=== PATIENT | female | born 1950 | race Caucasian/White ===

== ENCOUNTER 2017-04-12 11:23 | Emergency (ER) | payer MEDICARE ==
[2017-04-12] MEDS ORDERED: ONDANSETRON 4 MG/2 ML VIAL IVP STA (12:46)
[2017-04-12] MEDS ORDERED: SODIUM CHLORIDE 0.9% 1,000 ML IV STA (12:46)
[2017-04-12] MEDS ORDERED: MAG HYDROX/AL HYDROX/SIMETH 30 ML, HYOSCYAMINE ELIXIR 10 ML, CIMETIDINE HCL 300 MG, LID... PO STA ×4 (12:47)
[2017-04-12 13:03] LABS: Basophils % (A) 0 %; CH 31.7; CHCM 34.7; Eosinophils % (A) 1 %; HCT 42.8 % (34.0-46.0); HDW 2.47; HGB 14.8 gm/dL (11.4-16.0); Luc # (Auto) 0.24; Luc % (Auto) 3; Lymphocytes # (A) 1.8 k/uL (1.0-4.8); Lymphocytes % (A) 23 %; MCH 31.7 pg (25.0-35.0); MCHC 34.5 g/dL (31.0-37.0); Mean Platelet Volume 6.8; Monocytes # (A) 0.4 k/uL (0-1.0); Monocytes % (A) 5 %; Neutrophils # (A) 5.2 k/uL (1.3-7.7); Neutrophils % (A) 67 %; RBC 4.66 m/uL (3.80-5.40); RDW 12.7 % (11.5-15.5); WBC 7.7 k/uL (3.8-10.6); WBC (Perox) 7.44
[2017-04-12 13:14] LABS: Partial Thromboplastin Time 23.9 sec (22.0-30.0); Prothrombin Time 10.1 sec (9.0-12.0)
--- NOTE | 2017-04-12 13:17 | ED ---
General Adult HPI - General Chief complaint: Shortness of Breath Stated complaint: amy, nausea Time Seen by Provider: 04/12/17 12:34 Source: patient, RN notes reviewed Mode of arrival: ambulatory Limitations: no limitations - History of Present Illness Initial comments: 66-year-old female presents to the emergency department with chief complaint of abdominal issues. She has been having these abdominal issues and has a GI appointment on Thursday. She states that she'll get acid reflux she'll get a lot of belching. She states her last 2 days it seems to be getting worse. She was placed on omeprazole which seemed to help her symptoms. She states now she is having little bit of shortness of breath with this. She denies any chest pain with this. Patient states that she hasn't had any nausea or vomiting she doesn't have any pain just his this continuous annoyance that she hasn't had abdomen. Patient denies any diarrhea. Patient was concerned due to her symptoms so she thought that she should be evaluated.Patient denies any recent fever, chills, shortness of breath, chest pain, back pain, nausea vomiting, numbness or tingling, dysuria or hematuria, constipation or diarrhea, headaches or visual changes, or any other current symptoms. - Related Data Home Medications Medication Instructions Recorded Confirmed Folic Acid 1 mg PO DAILY 04/12/17 04/12/17 Hydrochlorothiazide [Hydrodiuril] 25 mg PO DAILY 04/12/17 04/12/17 Olmesartan [Benicar] 20 mg PO DAILY 04/12/17 04/12/17 Omeprazole 40 mg PO DAILY 04/12/17 04/12/17 Simvastatin [Zocor] 20 mg PO HS 04/12/17 04/12/17 buPROPion HCL [Wellbutrin SR] 150 mg PO BID 04/12/17 04/12/17 Previous Rx's Medication Instructions Recorded Mag Hydrox/Al Hydrox/Simeth 10 ml PO BID 10 Days 04/12/17 [Maalox] Allergies Allergy/AdvReac Type Severity Reaction Status Date / Time Penicillins Allergy Rash/Hives Verified 04/12/17 12:48 Review of Systems ROS Statement: Those systems with pertinent positive or pertinent negative responses have been documented in the HPI. ROS Other: All systems not noted in ROS Statement are negative. Past Medical History Additional Past Medical History / Comment(s): h. pylori History of Any Multi-Drug Resistant Organisms: None Reported Past Surgical History: Joint Replacement, Tonsillectomy Additional Past Surgical History / Comment(s): knee Past Psychological History: No Psychological Hx Reported Smoking Status: Never smoker Past Alcohol Use History: Rare Past Drug Use History: None Reported General Exam - General Exam Comments Initial Comments: General: The patient is awake and alert, in no distress, and does not appear acutely ill. Eye: Pupils are equal, round and reactive to light, extra-ocular movements are intact; there is normal conjunctiva bilaterally. No signs of icterus. Ears, nose, mouth and throat: There are moist mucous membranes and no oral lesions. Neck: The neck is supple, there is no tenderness. Cardiovascular: There is a regular rate and rhythm. No murmur, rub or gallop is appreciated. Respiratory: Lungs are clear to auscultation, respirations are non-labored, breath sounds are equal. No wheezes, stridor, rales, or rhonchi. Gastrointestinal: Soft, non-distended, non-tender abdomen without masses or organomegaly noted. There is no rebound or guarding present. No CVA tenderness. Bowel sounds are unremarkable. Back: There is no tenderness to palpation in the midline. There is no obvious deformity. No rashes noted. Musculoskeletal: Normal ROM, no tenderness, There is no pedal edema. There is no calf tenderness or swelling. Sensation intact. Pulses equal bilaterally 2+. Neurological: CN II-XII intact, There are no obvious motor or sensory deficits. Coordination appears grossly intact. Speech is normal. Skin: Skin is warm and dry and no rashes or lesions are noted. Psychiatric: Cooperative, appropriate mood & affect, normal judgment. Limitations: no limitations Course Vital Signs 04/12/17 04/12/17 04/12/17 12:07 12:40 13:43 Temperature 98.4 F Pulse Rate 100 84 72 Respiratory 18 18 18 Rate Blood Pressure 132/77 156/84 145/84 O2 Sat by Pulse 99 98 100 Oximetry EKG Findings - EKG Comments: EKG Findings:: normal sinus rhythm 84 bpm, normal axis, no atopy, no S-T depressions or elevations, Medical Decision Making - Medical Decision Making 66-year-old female presents with abdominal issues. At this time patient's lab work is been reviewed and her potassium has been replaced. The patient did have much improvement with the GI cocktail. We did discussion stop with GI and she has appointment on Thursday. We discussed prison and return parameters all the patient's questions. She stated that she understood and she is in agreement with plan. All questions have been answered. This time the patient will be discharged home. - Lab Data Result diagrams: 04/12/17 12:35 04/12/17 12:35 Lab Results 04/12/17 04/12/17 04/12/17 Range/Units 12:35 12:35 12:35 WBC 7.7 (3.8-10.6) k/uL RBC 4.66 (3.80-5.40) m/uL Hgb 14.8 (11.4-16.0) gm/dL Hct 42.8 (34.0-46.0) % MCV 92.0 (80.0-100.0) fL MCH 31.7 (25.0-35.0) pg MCHC 34.5 (31.0-37.0) g/dL RDW 12.7 (11.5-15.5) % Plt Count 353 (150-450) k/uL Neutrophils % 67 % Lymphocytes % 23 % Monocytes % 5 % Eosinophils % 1 % Basophils % 0 % Neutrophils # 5.2 (1.3-7.7) k/uL Lymphocytes # 1.8 (1.0-4.8) k/uL Monocytes # 0.4 (0-1.0) k/uL Eosinophils # 0.0 (0-0.7) k/uL Basophils # 0.0 (0-0.2) k/uL PT (9.0-12.0) sec INR (<1.2) APTT (22.0-30.0) sec Sodium 135 L (137-145) mmol/L Potassium 3.2 L (3.5-5.1) mmol/L Chloride 95 L (98-107) mmol/L Carbon Dioxide 28 (22-30) mmol/L Anion Gap 12 mmol/L BUN 10 (7-17) mg/dL Creatinine 0.76 (0.52-1.04) mg/dL Est GFR (MDRD) Af Amer >60 (>60 ml/min/1.73 sqM) Est GFR (MDRD) Non-Af >60 (>60 ml/min/1.73 sqM) Glucose 90 (74-99) mg/dL Calcium 9.4 (8.4-10.2) mg/dL Magnesium 2.0 (1.6-2.3) mg/dL Total Bilirubin 0.6 (0.2-1.3) mg/dL AST 29 (14-36) U/L ALT 38 (9-52) U/L Alkaline Phosphatase 82 (38-126) U/L Total Creatine Kinase 81 (30-135) U/L CK-MB (CK-2) 0.5 (0.0-2.4) ng/mL CK-MB (CK-2) Rel Index 0.6 Troponin I <0.012 (0.000-0.034) ng/mL Total Protein 7.3 (6.3-8.2) g/dL Albumin 4.6 (3.5-5.0) g/dL Amylase 85 (30-110) U/L Lipase 132 (23-300) U/L Urine Color Urine Appearance (Clear) Urine pH (5.0-8.0) Ur Specific Hazel (1.001-1.035) Urine Protein (Negative) Urine Glucose (UA) (Negative) Urine Ketones (Negative) Urine Blood (Negative) Urine Nitrite (Negative) Urine Bilirubin (Negative) Urine Urobilinogen (<2.0) mg/dL Ur Leukocyte Esterase (Negative) 04/12/17 04/12/17 Range/Units 12:35 13:35 WBC (3.8-10.6) k/uL RBC (3.80-5.40) m/uL Hgb (11.4-16.0) gm/dL Hct (34.0-46.0) % MCV (80.0-100.0) fL MCH (25.0-35.0) pg MCHC (31.0-37.0) g/dL RDW (11.5-15.5) % Plt Count (150-450) k/uL Neutrophils % % Lymphocytes % % Monocytes % % Eosinophils % % Basophils % % Neutrophils # (1.3-7.7) k/uL Lymphocytes # (1.0-4.8) k/uL Monocytes # (0-1.0) k/uL Eosinophils # (0-0.7) k/uL Basophils # (0-0.2) k/uL PT 10.1 (9.0-12.0) sec INR 1.0 (<1.2) APTT 23.9 (22.0-30.0) sec Sodium (137-145) mmol/L Potassium (3.5-5.1) mmol/L Chloride (98-107) mmol/L Carbon Dioxide (22-30) mmol/L Anion Gap mmol/L BUN (7-17) mg/dL Creatinine (0.52-1.04) mg/dL Est GFR (MDRD) Af Amer (>60 ml/min/1.73 sqM) Est GFR (MDRD) Non-Af (>60 ml/min/1.73 sqM) Glucose (74-99) mg/dL Calcium (8.4-10.2) mg/dL Magnesium (1.6-2.3) mg/dL Total Bilirubin (0.2-1.3) mg/dL AST (14-36) U/L ALT (9-52) U/L Alkaline Phosphatase (38-126) U/L Total Creatine Kinase (30-135) U/L CK-MB (CK-2) (0.0-2.4) ng/mL CK-MB (CK-2) Rel Index Troponin I (0.000-0.034) ng/mL Total Protein (6.3-8.2) g/dL Albumin (3.5-5.0) g/dL Amylase (30-110) U/L Lipase (23-300) U/L Urine Color Yellow Urine Appearance Clear (Clear) Urine pH 7.5 (5.0-8.0) Ur Specific Hazel 1.010 (1.001-1.035) Urine Protein Negative (Negative) Urine Glucose (UA) Negative (Negative) Urine Ketones Trace H (Negative) Urine Blood Negative (Negative) Urine Nitrite Negative (Negative) Urine Bilirubin Negative (Negative) Urine Urobilinogen <2.0 (<2.0) mg/dL Ur Leukocyte Esterase Negative (Negative) - Radiology Data Radiology results: report reviewed, image reviewed Disposition Clinical Impression: Hypokalemia, Gastritis Disposition: HOME SELF-CARE Condition: Stable Instructions: Gastritis (ED) Additional Instructions: Please use medication as discussed. Please follow up with family doctor if symptoms have not improved over the next two days. Please return to the emergency room if your symptoms increase or worsen or for any other concerns. Prescriptions: Mag Hydrox/Al Hydrox/Simeth [Maalox] 10 ml PO BID 10 Days Referrals: Noris Pink MD [Primary Care Provider] - 1-2 days Time of Disposition: 14:14
[2017-04-12 13:21] LABS: ALT 38 U/L (9-52); AST 29 U/L (14-36); Alkaline Phosphatase 82 U/L (38-126); Amylase 85 U/L (30-110); Anion Gap 12 mmol/L; Blood Urea Nitrogen 10 mg/dL (7-17); Calcium 9.4 mg/dL (8.4-10.2); Carbon Dioxide 28 mmol/L (22-30); Chloride 95 mmol/L (98-107); Glucose 90 mg/dL (74-99); Non-African American GFR(MDRD) >60 (>60 ml/min/1.73 sqM); Potassium 3.2 mmol/L (3.5-5.1); Sodium 135 mmol/L (137-145); Total Bilirubin 0.6 mg/dL (0.2-1.3); Total Protein 7.3 g/dL (6.3-8.2)
[2017-04-12 13:24] LABS: Creatine Kinase 81 U/L (30-135)
[2017-04-12 13:37] LABS: Creatine Kinase MB 0.5 ng/mL (0.0-2.4); Troponin I <0.012 ng/mL (0.000-0.034)
--- NOTE | 2017-04-12 13:40 | XR ---
EXAMINATION TYPE: XR chest 2V DATE OF EXAM: 04/12/2017 HISTORY: Chest Pain. REFERENCE: Previous study dated 10/21/2012. FINDINGS: The lungs are clear. Heart size is upper limits of normal. Pleural spaces are clear. IMPRESSION: BORDERLINE CARDIOMEGALY.
[2017-04-12 13:50] LABS: Appearance,Urine Clear (Clear); Bilirubin,Urine Negative (Negative); Glucose,Urine (UA) Negative (Negative); Ketones,Urine Trace (Negative); Leukocyte Esterase,Urine Negative (Negative); Nitrite,Urine Negative (Negative); PH, Urine 7.5 (5.0-8.0); Protein,Urine Negative (Negative); UA Billing (MACRO vs. MICRO) CHEM; Urobilinogen,Urine <2.0 mg/dL (<2.0)
[2017-04-12] MEDS ORDERED: POTASSIUM CHLORIDE ORAL LIQUID 40 MEQ/30 ML CUP PO ONE (14:00)
[2017-04-12 14:21] VITALS: BP 132/69; PULSE 64; RESP 16; TEMP 97.6
== END 2017-04-12 14:41 | disposition home or self-care (01) ==
LOC: EC 11:23
DX: K29.70 Gastritis, unspecified, without bleeding (principal); E87.6 Hypokalemia; R06.02 Shortness of breath; Z79.899 Other long term (current) drug therapy; Z88.0 Allergy status to penicillin
CPT/HCPCS: 96361 ×2; 96374 ×2; 99285 ×2; 36415; 93005; 80053; 82150; 82550; 82553; 83690; 83735; 84484; 85025; 85610; 85730; 81003; 71020; J2405

== ENCOUNTER → 2017-05-04 | Outpatient (CLI) | payer MEDICARE ==
[2017-05-04 11:11] LABS: Blood Urea Nitrogen 12 mg/dL (7-17); Non-African American GFR(MDRD) >60 (>60 ml/min/1.73 sqM)
--- NOTE | 2017-05-04 13:00 | CT ---
EXAMINATION TYPE: CT abdomen pelvis w con DATE OF EXAM: 05/04/2017 HISTORY: Weight loss. Nausea. CT DLP: 518.10mGycm Automated Exposure Control for Dose Reduction was Utilized. CONTRAST: CT scan of the abdomen and pelvis is performed with IV Contrast, patient injected with 100 ml mL of O mnipaque 300. COMPARISON: None. FINDINGS: LUNG BASES: Some patchy bibasilar linear scarring and/or atelectasis is present. Right atrium is mild to moderately dilated. LIVER/GB: Gallbladder is not visualized and presumed surgically absent. PANCREAS: No significant abnormality is seen. SPLEEN: No significant abnormality is seen. ADRENALS: No significant abnormality is seen. KIDNEYS: There is occasional subcentimeter low dense lesions scattered throughout both kidneys too sm all to further characterize per presumed benign. There is exophytic 3.0 cm low dense lesion lower hernandez e level left kidney, Hounsfield units are around 20 favoring simple cyst. BOWEL: The oral contrast does not reach colonic level making evaluation slightly suboptimal. No suspi cious small or large bowel dilatation is present. Normal-appearing appendix is seen inferiorly from c ecum. There is nonabsorbed pill near the level of hepatic flexure. UTERUS/ADNEXA: Occasional pelvic phleboliths are seen. LYMPH NODES: No greater than 1cm abdominal or pelvic lymph nodes are appreciated. OSSEOUS STRUCTURES: Metallic hardware from right hip arthroplasty causes streak artifact somewhat sears iting evaluation of pelvic structures. Spine is straightened on sagittal images. There is vacuum disc phenomenon L5-S1 level. There is moderate joint space loss and spurring in the left hip. OTHER: No significant additional abnormality is seen. IMPRESSION: No bowel obstruction is present. No significant finding is seen to account for patient's symptoms.
== END | disposition home or self-care (01) ==
LOC: RADCTMAIN 10:27
PROVIDERS: ATTEND Internal Medicine Gastroenterology
DX: R10.33 Periumbilical pain (principal); R63.4 Abnormal weight loss; R11.0 Nausea
CPT/HCPCS: 82565; 84520; 74177; 36415; Q9967

== ENCOUNTER → 2017-11-27 | Outpatient (CLI) | payer MEDICARE ==
--- NOTE | 2017-11-27 17:30 | MR ---
EXAMINATION TYPE: MR lumbar spine wo con DATE OF EXAM: 11/27/2017 COMPARISON: NONE HISTORY: 67-year-old female herniated disc, Low back pain TECHNIQUE: Multiplanar, multisequence images of the lumbar spine were acquired. Findings: Vertebral body heights are preserved. There is hypertrophic facet arthropathy throughout the lumbar spine. Degenerative grade 1 anterolisthesis at L2-L3 and L4-L5. Mild heterogeneous marrow signal without suspicious bone marrow replacement. Prominent sacral Tarlov cysts are present measuring up to 2.1 cm. Scattered ligamentum flavum thickening and variable mild to moderate degenerative disc disease charac terized by desiccated and bulging discs at multiple levels. A couple T2 hyperintense lesions within the kidneys suggestive of cysts measuring up to 1.6 cm. No pr evertebral or paravertebral soft tissue abnormality seen. Conus medullaris is normal. At T12-L1, there is diffuse disc bulge and facet degenerative change, no significant canal or foramin al stenosis. L1-L2, there is diffuse disc bulge and facet arthropathy. No significant canal or foraminal stenosis. At L2-L3, there is hypertrophic facet arthropathy with grade 1 anterolisthesis, diffuse disc bulge, a nd prominent dorsal epidural fat. There is overall mild narrowing of the spinal canal at this level b ut without significant neuroforaminal stenosis. At L3-L4, there is diffuse disc bulge with hypertrophic facet arthropathy. Changes result in mild selina ateral neuroforaminal stenosis without spinal canal stenosis. At L4-L5, diffuse disc bulge with hypertrophic facet arthropathy. Changes result in mild left and min imal inferior right neural foraminal narrowing without spinal canal stenosis. At L5-S1, facet degenerative change and disc osteophyte complex towards the right contributing to mod erate right neural foraminal stenosis with possible impingement of the exiting and extraforaminal rig ht L5 nerve root. IMPRESSION: 1. Mild to moderate multilevel degenerative disc disease with a variable desiccation and disc bulging . 2. Hypertrophic facet arthropathy throughout. Grade 1 anterolistheses are present at L2-L3 and L4-L5. 3. There is overall mild narrowing of the spinal canal at L2-L3. No spinal canal compromise. 4. Rightward disc osteophyte complex and facet arthropathy contributes to a moderate right neuroforam inal stenosis at L5-S1 with possible impingement of the exiting and extraforaminal right L5 nerve darleen t. 5. Prominent sacral Tarlov cysts measuring up to 2.1 cm.
== END | disposition home or self-care (01) ==
LOC: RADMRIMAIN 10:58
PROVIDERS: ATTEND Family Medicine
DX: M99.73 Connective tissue and disc stenosis of intervertebral foramina of lumbar region (principal); M51.26 Other intervertebral disc displacement, lumbar region; M43.16 Spondylolisthesis, lumbar region; M51.36 Other intervertebral disc degeneration, lumbar region; M46.96 Unspecified inflammatory spondylopathy, lumbar region
CPT/HCPCS: 72148

== ENCOUNTER 2018-10-26 11:50 | Observation (INO) | payer MEDICARE ==
[2018-10-26] MEDS ORDERED: SODIUM CHLORIDE 0.9% 500 ML 500 ML IV STA (12:02)
[2018-10-26] MEDS ORDERED: ASPIRIN 325 MG TAB PO STA (12:09)
--- NOTE | 2018-10-26 12:14 | ED ---
Weakness HPI - General Chief complaint: Weakness Stated complaint: Weak Time Seen by Provider: 10/26/18 12:02 Source: patient, RN notes reviewed Mode of arrival: ambulatory Limitations: no limitations - History of Present Illness Initial comments: 68-year-old female presents emergency Department chief complaint of progressive weakness. Patient states that she has been not feeling right over the last few weeks states that she seen her PCP for this who did lab work, EKG few weeks ago and then had Holter monitor placed. Patient states that she called her today because she felt more weak and had some faint chest pressure. Patient states that her physician advised her emergency department because she had some abnormal areas on her Holter monitor. Patient has no current shortness of breath. She states that she was at exercise class on Thursday and states that she was so fatigued she cannot continue which is not normal for her and also she is very diaphoretic. Patient does have a history of hyperlipidemia and hypertension on current medications. No history of diabetes. Patient is a nonsmoker. - Related Data Home Medications Medication Instructions Recorded Confirmed Folic Acid 1 mg PO DAILY 04/12/17 10/26/18 Hydrochlorothiazide [Hydrodiuril] 25 mg PO DAILY 04/12/17 10/26/18 Olmesartan [Benicar] 20 mg PO DAILY 04/12/17 10/26/18 Omeprazole 40 mg PO DAILY PRN 04/12/17 10/26/18 Simvastatin [Zocor] 20 mg PO HS 04/12/17 10/26/18 buPROPion HCL [Wellbutrin SR] 150 mg PO BID 04/12/17 10/26/18 Cholecalciferol [Vitamin D3] 1,000 unit PO DAILY 10/26/18 10/26/18 Cyanocobalamin (Vitamin B-12) 1,000 mcg PO DAILY 10/26/18 10/26/18 [Vitamin B-12] Vit C/E/Zn/Coppr/Lutein/Zeaxan 1 cap PO DAILY 10/26/18 10/26/18 [Preservision Areds 2 Softgel] Allergies Allergy/AdvReac Type Severity Reaction Status Date / Time Penicillins Allergy Rash/Hives Verified 10/26/18 12:45 Review of Systems ROS Statement: Those systems with pertinent positive or pertinent negative responses have been documented in the HPI. ROS Other: All systems not noted in ROS Statement are negative. Past Medical History Past Medical History: Hyperlipidemia, Hypertension Additional Past Medical History / Comment(s): h. pylori History of Any Multi-Drug Resistant Organisms: None Reported Past Surgical History: Joint Replacement, Tonsillectomy Additional Past Surgical History / Comment(s): knee hip replacement Past Psychological History: No Psychological Hx Reported, Anxiety Smoking Status: Former smoker Past Alcohol Use History: Rare Past Drug Use History: None Reported General Exam General appearance: alert, in no apparent distress Head exam: Present: atraumatic, normocephalic, normal inspection Eye exam: Present: normal appearance, PERRL, EOMI. Absent: scleral icterus, c onjunctival injection, periorbital swelling ENT exam: Present: normal exam, normal oropharynx, mucous membranes moist, TM's normal bilaterally Neck exam: Present: normal inspection. Absent: tenderness, meningismus, lymphadenopathy Respiratory exam: Present: normal lung sounds bilaterally. Absent: respiratory distress, wheezes, rales, rhonchi, stridor Cardiovascular Exam: Present: regular rate, normal rhythm, normal heart sounds. Absent: systolic murmur, diastolic murmur, rubs, gallop, clicks GI/Abdominal exam: Present: soft, normal bowel sounds. Absent: distended, tenderness, guarding, rebound, rigid Neurological exam: Present: alert, oriented X3, CN II-XII intact, reflexes normal. Absent: motor sensory deficit Skin exam: Present: warm, dry, intact, normal color. Absent: rash Course Vital Signs 10/26/18 10/26/18 10/26/18 11:53 12:30 13:00 Temperature 98.5 F Pulse Rate 94 79 72 Respiratory 18 11 L 11 L Rate Blood Pressure 145/81 149/86 149/86 O2 Sat by Pulse 98 98 97 Oximetry 10/26/18 10/26/18 13:30 14:00 Temperature Pulse Rate 68 72 Respiratory 12 17 Rate Blood Pressure 145/85 150/86 O2 Sat by Pulse 99 97 Oximetry EKG Findings - EKG Comments: EKG Findings:: EKG performed at 12:14 normal sinus rhythm with rate of 82 WA 166 QRS 70 QTC is QTC 398/464 is mild depressions in V2 and V3 Medical Decision Making - Medical Decision Making 68-year-old female presented for fatigue/weakness and mild chest pressure. Patient had labwork EKG and chest x-ray which is unremarkable. Patient be admitted for cardiac rule out. - Lab Data Result diagrams: 10/26/18 12:34 10/26/18 12:34 Lab Results 10/26/18 10/26/18 10/26/18 Range/Units 12:34 12:34 12:34 WBC 7.1 (3.8-10.6) k/uL RBC 4.88 (3.80-5.40) m/uL Hgb 14.5 (11.4-16.0) gm/dL Hct 43.4 (34.0-46.0) % MCV 89.0 (80.0-100.0) fL MCH 29.8 (25.0-35.0) pg MCHC 33.5 (31.0-37.0) g/dL RDW 12.6 (11.5-15.5) % Plt Count 338 (150-450) k/uL Neutrophils % 70 % Lymphocytes % 21 % Monocytes % 5 % Eosinophils % 1 % Basophils % 1 % Neutrophils # 5.0 (1.3-7.7) k/uL Lymphocytes # 1.5 (1.0-4.8) k/uL Monocytes # 0.4 (0-1.0) k/uL Eosinophils # 0.1 (0-0.7) k/uL Basophils # 0.0 (0-0.2) k/uL PT (9.0-12.0) sec INR (<1.2) APTT (22.0-30.0) sec Sodium 137 (137-145) mmol/L Potassium 3.7 (3.5-5.1) mmol/L Chloride 99 (98-107) mmol/L Carbon Dioxide 29 (22-30) mmol/L Anion Gap 9 mmol/L BUN 15 (7-17) mg/dL Creatinine 0.65 (0.52-1.04) mg/dL Est GFR (CKD-EPI)AfAm >90 (>60 ml/min/1.73 sqM) Est GFR (CKD-EPI)NonAf >90 (>60 ml/min/1.73 sqM) Glucose 89 (74-99) mg/dL Plasma Lactic Acid Javier 1.2 (0.7-2.0) mmol/L Calcium 10.2 (8.4-10.2) mg/dL Phosphorus 3.4 (2.5-4.5) mg/dL Magnesium 2.0 (1.6-2.3) mg/dL Total Bilirubin 0.6 (0.2-1.3) mg/dL AST 30 (14-36) U/L ALT 33 (9-52) U/L Alkaline Phosphatase 77 (38-126) U/L Troponin I (0.000-0.034) ng/mL Total Protein 7.4 (6.3-8.2) g/dL Albumin 4.8 (3.5-5.0) g/dL TSH 2.210 (0.465-4.680) mIU/L 10/26/18 10/26/18 Range/Units 12:34 12:34 WBC (3.8-10.6) k/uL RBC (3.80-5.40) m/uL Hgb (11.4-16.0) gm/dL Hct (34.0-46.0) % MCV (80.0-100.0) fL MCH (25.0-35.0) pg MCHC (31.0-37.0) g/dL RDW (11.5-15.5) % Plt Count (150-450) k/uL Neutrophils % % Lymphocytes % % Monocytes % % Eosinophils % % Basophils % % Neutrophils # (1.3-7.7) k/uL Lymphocytes # (1.0-4.8) k/uL Monocytes # (0-1.0) k/uL Eosinophils # (0-0.7) k/uL Basophils # (0-0.2) k/uL PT 9.6 (9.0-12.0) sec INR 0.9 (<1.2) APTT 24.1 (22.0-30.0) sec Sodium (137-145) mmol/L Potassium (3.5-5.1) mmol/L Chloride (98-107) mmol/L Carbon Dioxide (22-30) mmol/L Anion Gap mmol/L BUN (7-17) mg/dL Creatinine (0.52-1.04) mg/dL Est GFR (CKD-EPI)AfAm (>60 ml/min/1.73 sqM) Est GFR (CKD-EPI)NonAf (>60 ml/min/1.73 sqM) Glucose (74-99) mg/dL Plasma Lactic Acid Javier (0.7-2.0) mmol/L Calcium (8.4-10.2) mg/dL Phosphorus (2.5-4.5) mg/dL Magnesium (1.6-2.3) mg/dL Total Bilirubin (0.2-1.3) mg/dL AST (14-36) U/L ALT (9-52) U/L Alkaline Phosphatase (38-126) U/L Troponin I <0.012 (0.000-0.034) ng/mL Total Protein (6.3-8.2) g/dL Albumin (3.5-5.0) g/dL TSH (0.465-4.680) mIU/L Disposition Clinical Impression: Chest pain, Fatigue Disposition: ADMITTED IP TO THIS HOSP Condition: Stable Referrals: Noris Pink MD [Primary Care Provider] - 1-2 days
[2018-10-26 13:03] LABS: Basophils % (A) 1 %; Eosinophils # (A) 0.1 k/uL (0-0.7); Eosinophils % (A) 1 %; HCT 43.4 % (34.0-46.0); HGB 14.5 gm/dL (11.4-16.0); Lymphocytes # (A) 1.5 k/uL (1.0-4.8); Lymphocytes % (A) 21 %; MCH 29.8 pg (25.0-35.0); MCHC 33.5 g/dL (31.0-37.0); Mean Platelet Volume 6.4; Monocytes # (A) 0.4 k/uL (0-1.0); Monocytes % (A) 5 %; Neutrophils % (A) 70 %; Platelet Count 338 k/uL (150-450); RBC 4.88 m/uL (3.80-5.40); RDW 12.6 % (11.5-15.5); WBC 7.1 k/uL (3.8-10.6)
--- NOTE | 2018-10-26 13:04 | XR ---
EXAMINATION TYPE: XR chest 2V DATE OF EXAM: 10/26/2018 COMPARISON: 04/12/2017 TECHNIQUE: PA and lateral views submitted. HISTORY: Chest heaviness FINDINGS: The lungs are clear and there is no pneumothorax, pleural effusion, or focal pneumonia. Hyperinflat ion compatible COPD. Arthropathy of the shoulders. No overt failure. IMPRESSION: 1. No acute process.
[2018-10-26 13:16] LABS: ALT 33 U/L (9-52); AST 30 U/L (14-36); Albumin 4.8 g/dL (3.5-5.0); Alkaline Phosphatase 77 U/L (38-126); Anion Gap 9 mmol/L; Blood Urea Nitrogen 15 mg/dL (7-17); Calcium 10.2 mg/dL (8.4-10.2); Carbon Dioxide 29 mmol/L (22-30); Chloride 99 mmol/L (98-107); Glucose 89 mg/dL (74-99); Phosphorus 3.4 mg/dL (2.5-4.5); Potassium 3.7 mmol/L (3.5-5.1); Sodium 137 mmol/L (137-145); Total Bilirubin 0.6 mg/dL (0.2-1.3); Total Protein 7.4 g/dL (6.3-8.2)
[2018-10-26 13:19] LABS: INR 0.9 (<1.2); Partial Thromboplastin Time 24.1 sec (22.0-30.0); Prothrombin Time 9.6 sec (9.0-12.0)
[2018-10-26] MEDS ORDERED: HEPARIN SODIUM,PORCINE 5,000 UNIT/ML 1 ML VIAL IV ONE (14:41)
[2018-10-26] MEDS ORDERED: NITROGLYCERIN SL TABS 0.4 MG TAB SUBLINGUAL PRN (14:41)
[2018-10-26] MEDS ORDERED: HEPARIN SOD,PORK IN 0.45% NACL 25,000 UNIT in 0.45% NACL 1 250ML.BAG IV SCH (14:45)
--- NOTE | 2018-10-26 15:28 | P.HPIM ---
History of Present Illness H&P Date: 10/26/18 Chief Complaint: Exercise intolerance 68-year-old female with history of hypertension hyperlipidemia. Patient presented to the hospital upon recommendations from her PCP who found abnormal ambulatory echocardiogram results Along with abnormal EKG, both are not available for immediate revision at this point. Patient reports a week or 2 history of exercise intolerance, normally she is active participate in some exercising programs however she noticed that she is unable to participate fully in these as before. Yesterday she had a class and she couldn't do anything. Sh e denies any chest pain she denies any coughing she denies any shortness of breath she denies any syncope, she denies any irregular heart beats or skipped beats. She does admit to some palpitations and exercise intolerance only she denies any nausea vomiting or dizziness. However she does report that she feels lightheaded at times when she stands up. She has also reported to me that over the past week or 2 she noticed that her blood pressure has been out of control at one point she checked her blood pressure with her PCP and reported to be a systolic of 170 which was associated with some headache over the past week or 2 generalized 5-6 out of 10 in severity.. No medication changes has been done recently. Patient is nondiabetic nonsmoker never had any coronary artery disease in the past. She denies any history of stroke seizures. She denies any focal neurologic deficits she denies any changes in her vision hearing any numbness or tingling or focal neurologic deficits. Patient denies any GI bleeding. Denies any recent changes in her medications. In the ED labs were unremarkable, blood pressure systolic is in the 150s. EKG showed normal sinus rhythm. Patient was admitted for cardiac monitoring and cardiology evaluation. Review of Systems Pertinent positives as noted in HPI. All other systems were reviewed and are negative Past Medical History Past Medical History: Hyperlipidemia, Hypertension Additional Past Medical History / Comment(s): h. pylori History of Any Multi-Drug Resistant Organisms: None Reported Past Surgical History: Joint Replacement, Tonsillectomy Additional Past Surgical History / Comment(s): knee hip replacement Past Psychological History: No Psychological Hx Reported, Anxiety Smoking Status: Former smoker Past Alcohol Use History: Rare Past Drug Use History: None Reported - Past Family History Family Additional Family Medical History / Comment(s): No history of premature CAD Medications and Allergies Home Medications Medication Instructions Recorded Confirmed Type Folic Acid 1 mg PO DAILY 04/12/17 10/26/18 History Hydrochlorothiazide [Hydrodiuril] 25 mg PO DAILY 04/12/17 10/26/18 History Olmesartan [Benicar] 20 mg PO DAILY 04/12/17 10/26/18 History Omeprazole 40 mg PO DAILY PRN 04/12/17 10/26/18 History Simvastatin [Zocor] 20 mg PO HS 04/12/17 10/26/18 History buPROPion HCL [Wellbutrin SR] 150 mg PO BID 04/12/17 10/26/18 History Cholecalciferol [Vitamin D3] 1,000 unit PO DAILY 10/26/18 10/26/18 History Cyanocobalamin (Vitamin B-12) 1,000 mcg PO DAILY 10/26/18 10/26/18 History [Vitamin B-12] Vit C/E/Zn/Coppr/Lutein/Zeaxan 1 cap PO DAILY 10/26/18 10/26/18 History [Preservision Areds 2 Softgel] Allergies Allergy/AdvReac Type Severity Reaction Status Date / Time Penicillins Allergy Rash/Hives Verified 10/26/18 12:45 Physical Exam Vitals: Vital Signs Temp Pulse Resp BP Pulse Ox 10/26/18 14:00 72 17 150/86 97 10/26/18 13:30 68 12 145/85 99 10/26/18 13:00 72 11 L 149/86 97 10/26/18 12:30 79 11 L 149/86 98 10/26/18 11:53 98.5 F 94 18 145/81 98 Intake and Output 10/26/18 10/26/18 10/26/18 06:59 14:59 22:59 Other: Weight 74.843 kg Constitutional: No acute distress, conversant, pleasant Eyes: Anicteric sclerae, moist conjunctiva, no lid-lag Pupils equal round reactive to light ENMT: NC/AT Oropharynx clear, no erythema, or exudates Neck: Supple, FROM, no masses, or JVD No carotid bruits No thyromegaly Lungs: Clear to auscultation Clear to percussion Normal respiratory effort, no accessory muscle use Cardiovascular: Heart regular in rate and rhythm, No murmurs, gallops, or rubs No peripheral edema Abdominal: Soft Nontender, no guarding, rebound or rigidity Abdomen moving with respiration Normoactive bowel sounds No hepatomegaly, No splenomegaly No palpable mass No abdominal wall hernia noted Skin: Normal temperature, tone, texture, turgor No induration No subcutaneous nodules No rash, lesions No ulcers Extremities: No digital cyanosis No clubbing Pedal pulses intact and symmetrical Radial pulses intact and symmetrical No calf tenderness Psychiatric: Alert and oriented to person, place and time Appropriate affect fair judgment Neuro Muscles Strength 5/5 in all 4 extremities Sensation to light touch grossly present throughout Cranial nerves II-XII grossly intact No focal sensory deficits Lymphatics: no palpable cervical or supraclavicular , or inguinal lymph nodes Results CBC & Chem 7: 10/26/18 12:34 10/26/18 12:34 Assessment and Plan Assessment: 68-year-old female with history of hypertension hyperlipidemia admitted under observation with anticipated length of stay less than 48 hours due exercise intolerance, uncontrolled blood pressure associated with headache and dizziness at times. Patient PCP reported to the patient some abnormalities in her ambulatory electrocardiogram and EKG and recommended that she goes to the nearest hospital for evaluation. EKG in the ER was unremarkable showing normal sinus rhythm, patient's systolic blood pressure is in the 150s. Otherwise patient initial labs were unremarkable. Patient admitted for cardiac monitoring, cardiology evaluation. Plan: Exercise intolerance rule out underlying cardiac causes Uncontrolled hypertension Abnormal and ambulatory electrocardiogram not currently available for revision Hyperlipidemia Plan Admission under observation anticipated length of stay less than 48 hours Monitor cardiac enzymes Cardiac copyman vital signs Continue hydralazine and Olmesartan Add Norvasc 10 mg daily Continue with statin and aspirin IV fluid hydration Follow-up morning labs Cardiology consult Check 2-D echocardiogram Discontinue heparin drip DVT prophylaxis heparin subcu 3 times a day Surrogate decision-maker: Patient's CODE STATUS: Full code Discussed with: Patient, ER, *RN Anticipated discharge: <48- hours Anticipated discharge place: Home A total of 60 minutes was spent on the care of this complex patient more than 50% of the time was spent in counseling and care coordination.
[2018-10-26 16:09] VITALS: RESP 18
[2018-10-26] MEDS: SODIUM CHLORIDE 0.9% 1,000 ML IV SCH (16:32)
[2018-10-26] MEDS: amLODIPine 10 MG TAB PO SCH (16:32)
[2018-10-26] MEDS ORDERED: ATORVASTATIN 10 MG TAB PO SCH (21:00)
[2018-10-26] MEDS: buPROPion SR 150 MG TABLET.ER PO SCH (21:28)
[2018-10-26 22:27] LABS: Appearance,Urine Clear (Clear); Bilirubin,Urine Negative (Negative); Blood,Urine Negative (Negative); Color,Urine Light Yellow; Glucose,Urine (UA) Negative (Negative); Ketones,Urine Negative (Negative); Leukocyte Esterase,Urine Trace (Negative); Mucus,Urine Rare /hpf; Nitrite,Urine Negative (Negative); Protein,Urine Negative (Negative); RBC,Urine 1 /hpf (0-5); Specific Gravity,Urine 1.007 (1.001-1.035); Urobilinogen,Urine <2.0 mg/dL (<2.0); WBC,Urine 2 /hpf (0-5)
[2018-10-27] MEDS: SODIUM CHLORIDE 0.9% 1,000 ML IV SCH (03:08)
[2018-10-27 08:06] LABS: Mean Platelet Volume 6.4; Platelet Count 333 k/uL (150-450)
[2018-10-27 08:18] LABS: Cholesterol 172 mg/dL (<200); HDL Cholesterol 75 mg/dL (40-60); LDL Cholesterol,Calculated 81 mg/dL (0-99); Triglycerides 82 mg/dL (<150)
--- NOTE | 2018-10-27 08:33 | CONS ---
CONSULTATION This is a 68-year-old lady with a known history of hypertension and hyperlipidemia. She sees Dr. Noris Pink in the outpatient setting in [place], [place]. She was sent here to the emergency room after being seen by the primary care physician a couple of days ago mainly because of fatigue, lack of energy, just not feeling well. Her symptoms are very nondescript, but after she came to the emergency room, she indicated to the ER physician that she was having some faint discomfort in the anterior chest that comes and goes sometimes with activity and also when she is fatigued. Quality of the pain is atypical. She has not had any recurrence. She also indicated that she was having some diaphoresis at that time, but to me she said she has absolutely no diaphoresis. She is not a smoker, has history of hypertension, hyperlipidemia. Had a stress test 5 years ago which was normal per patient. The quality of her symptoms do not strongly suggest angina, but she has moderate risk factors and she is very vague in her description. PAST MEDICAL HISTORY: Remarkable for hypertension, hyperlipidemia, right total hip arthroplasty, left knee arthroscopic surgery, and also cholecystectomy. ALLERGIES: PENICILLIN. MEDICATIONS: Include hydrochlorothiazide, Benicar, omeprazole, simvastatin, folic acid, and vitamin supplements. PHYSICAL EXAMINATION: Blood pressure is 110/70, pulse rate is 70 per minute, regular. HEENT unremarkable. Fundus was not examined by me. Neck is supple. No JVD. I do not hear a carotid bruit. There is no thyromegaly. Heart exam reveals S1, S2 heard normally without a rub, murmur, or gallop. Lungs are clear. Abdomen is soft, nontender. Lower extremities reveal normal pulses. No edema. Central nervous system is normal. EKG revealed sinus mechanism with a precordial ST changes which are nonspecific changes. LABORATORY DATA: Revealed the troponins are unremarkable. No other significant abnormalities. IMPRESSION: 1. Atypical chest pain. 2. Hypertension. 3. Hyperlipidemia. RECOMMENDATION: I am recommending that we proceed with a stress echo to assess for ischemia. EKG changes are nonspecific. Troponin is unremarkable. I will reduce the aspirin to 81 mg daily. The patient will not be started on a beta misti in view of the stress test to be performed today. Following the stress test, if this is normal, she can be discharged. MMODL / IJN: [id number] /
[2018-10-27] MEDS ORDERED: ASPIRIN 81 MG PO SCH (09:00)
[2018-10-27] MEDS ORDERED: ASPIRIN 325 MG TAB PO SCH (09:00)
[2018-10-27] MEDS ORDERED: HYDROCHLOROTHIAZIDE 25 MG TAB PO SCH (09:00)
[2018-10-27] MEDS ORDERED: LOSARTAN 50 MG TAB PO SCH (09:00)
--- NOTE | 2018-10-27 10:36 | ECHOF ---
Referral Reason:LVEF MEASUREMENTS -------- HEIGHT: 162.6 cm WEIGHT: 74.8 kg BP: 99/63 RVIDd: 3.1 cm (< 3.3) IVSd: 1.0 cm (0.6 - 1.1) LVIDd: 3.6 cm (3.9 - 5.3) LVPWd: 0.9 cm (0.6 - 1.1) IVSs: 1.1 cm LVIDs: 2.5 cm LVPWs: 1.5 cm LA Diam: 3.5 cm (2.7 - 3.8) Ao Diam: 2.8 cm (2.0 - 3.7) AV Cusp: 1.7 cm (1.5 - 2.6) LA Diam: 3.4 cm (2.7 - 3.8) MV EXCURSION: 17.007 mm (> 18.000) MV EF SLOPE: 59 mm/s (70 - 150) EPSS: 0.3 cm MV E Pranay: 0.60 m/s MV DecT: 185 ms MV A Pranay: 0.72 m/s MV E/A Ratio: 0.84 RAP: 5.00 mmHg RVSP: 18.61 mmHg FINDINGS -------- Sinus rhythm. This was a technically adequate study. The left ventricular size is normal. There is borderline concentric left ventricular hypertrophy. Overall left ventricular systolic function is normal with, an EF between 55 - 60 %. The right ventricle is normal in size. The left atrial size is normal. The right atrial size is normal. The aortic valve is trileaflet, and appears structurally normal. No aortic stenosis or regurgitation. Mild mitral annular calcification present. Mild mitral regurgitation is present. Mild tricuspid regurgitation present. There is no evidence of pulmonary hypertension. The right v entricular systolic pressure, as measured by Doppler, is 18.61mmHg. There is no pulmonic regurgitation present. The aortic root size is normal. There is no pericardial effusion. CONCLUSIONS -------- 1. The left ventricular size is normal. 2. There is borderline concentric left ventricular hypertrophy. 3. Overall left ventricular systolic function is normal with, an EF between 55 - 60 %. 4. The right ventricle is normal in size. 5. The left atrial size is normal. 6. The right atrial size is normal. 7. The aortic valve is trileaflet, and appears structurally normal. No aortic stenosis or regurgitati on. 8. Mild mitral annular calcification present. 9. Mild mitral regurgitation is present. 10. Mild tricuspid regurgitation present. 11. There is no evidence of pulmonary hypertension. 12. The right ventricular systolic pressure, as measured by Doppler, is 18.61mmHg. 13. There is no pulmonic regurgitation present. 14. The aortic root size is normal. 15. There is no pericardial effusion. [employer] SALES REPRESENTATIVE: Koki Rodriguez RDCS
[2018-10-27] MEDS: amLODIPine 10 MG TAB PO SCH (11:36)
[2018-10-27] MEDS: buPROPion SR 150 MG TABLET.ER PO SCH (11:38)
[2018-10-27] MEDS ORDERED: FOLIC ACID 1 MG TAB PO SCH (12:00)
[2018-10-27 16:05] VITALS: BP 145/89; PULSE 95; TEMP 98.1
--- NOTE | 2018-10-27 16:55 | P.DS ---
Providers Date of admission: 10/26/18 15:01 Expected date of discharge: 10/27/18 Attending physician: Sergei Thompson MD Consults: 10/26/18 14:41 Consult Physician Urgent Consulting Provider: Leo Graham Consult Reason/Comments: chest pain Do you want consulting provider notified?: Yes Primary care physician: Noris Stoddard [facility] Course: final diagnosis at discharge hypertensive urgency , accelerated Hyperlipidemia consults cardiology hospital course 68-year-old female with history of hypertension hyperlipidemia admitted under observation with anticipated length of stay less than 48 hours due exercise intolerance, uncontrolled blood pressure associated with headache and dizziness at times. Patient PCP reported to the patient some abnormalities in her ambu latory electrocardiogram and EKG and recommended that she goes to the nearest hospital for evaluation. EKG in the ER was unremarkable showing normal sinus rhythm, patient's systolic blood pressure is in the 150s. Otherwise patient initial labs were unremarkable. Patient admitted for cardiac monitoring, cardiology evaluation. patient monitored overnight, no arrhythmias , troponins negative, echocardiogram was unremarkable with LVEF wnl. cardiology evaluated the patient and offered exercise stress echo. which she tolerated very well , and result reported to be negative for any exercise induced arrythmias or ishcemia . patient cleared by cardiology for discharge blood pressure was elevated, and better control achieved by adding norvasc 10 mg. patient seen and examined on day of discharge doing well no new complaints. tolerated exercise stress pretty well. denies any chest pain or trouble breathing Constitutional: vital signs stable, Not in acute distress, pleasant, convers ant Lungs: Clear to auscultation bilaterally, clear to percussion, normal respiratory effort no use of accessory muscles Cardiovascular: Regular rate and rhythm, no murmurs, no gallops, no rubs, no p eripheral edema Gastrointestinal: Soft, no tenderness to palpation , bowel sounds positive Extremities: No digital cyanosis or clubbing, peripheral pulses palpable and equal over bilateral radial arteries and dorsalis pedis artery, no calf muscle tenderness Psych: Alert, oriented to place, person and time, appropriate affect, intact judgment patient discharged in stable clinical condition follow up with PCP new script for norvasc sent to patients preferred pharmacy unremarkable stress echo echo cardiogram shows LVEF wnl labs unremarkable 30 minutes were spent discharging this patient, and more than 50% of the time was spent in counseling the patient and family and in coordinating care. Pertinent Studies: echocardiogram , LVEF wnl stress echo , no evidence of ischemia or exercise induced arrhythmias Patient Condition at Discharge: Good Plan - Discharge Summary Discharge Rx Participant: No New Discharge Prescriptions: New amLODIPine [Norvasc] 10 mg PO DAILY #30 tab Continue buPROPion HCL [Wellbutrin SR] 150 mg PO BID Simvastatin [Zocor] 20 mg PO HS Olmesartan [Benicar] 20 mg PO DAILY Hydrochlorothiazide [Hydrodiuril] 25 mg PO DAILY Folic Acid 1 mg PO DAILY Omeprazole 40 mg PO DAILY PRN PRN Reason: Gi Upset Cholecalciferol [Vitamin D3] 1,000 unit PO DAILY Vit C/E/Zn/Coppr/Lutein/Zeaxan [Preservision Areds 2 Softgel] 1 cap PO DAILY Cyanocobalamin (Vitamin B-12) [Vitamin B-12] 1,000 mcg PO DAILY Discharge Medication List Folic Acid 1 mg PO DAILY 04/12/17 [History] Hydrochlorothiazide [Hydrodiuril] 25 mg PO DAILY 04/12/17 [History] Olmesartan [Benicar] 20 mg PO DAILY 04/12/17 [History] Omeprazole 40 mg PO DAILY PRN 04/12/17 [History] Simvastatin [Zocor] 20 mg PO HS 04/12/17 [History] buPROPion HCL [Wellbutrin SR] 150 mg PO BID 04/12/17 [History] Cholecalciferol [Vitamin D3] 1,000 unit PO DAILY 10/26/18 [History] Cyanocobalamin (Vitamin B-12) [Vitamin B-12] 1,000 mcg PO DAILY 10/26/18 [History] Vit C/E/Zn/Coppr/Lutein/Zeaxan [Preservision Areds 2 Softgel] 1 cap PO DAILY 10/26/18 [History] amLODIPine [Norvasc] 10 mg PO DAILY #30 tab 10/27/18 [Rx] Follow up Appointment(s)/Referral(s): Noris Pink MD [Primary Care Provider] - 1-2 days Patient Instructions/Handouts: Heart Healthy Diet (ED), DASH Eating Plan (ED) Care Plan Goals (MU): follow up blood pressure with your PCP Discharge Disposition: HOME SELF-CARE
--- NOTE | 2018-10-28 08:08 | ECHOS ---
STRESS ECHOCARDIOGRAM DATE OF SERVICE: 10/27/2018 INDICATIONS: Abnormal EKG MEDICATIONS: BASELINE HEART RATE: 78 BASELINE BLOOD PRESSURE: 140/76 MAXIMUM HEART RATE: 146 MAXIMUM BLOOD PRESSURE: 184/102 85% MPHR: 130 100% MPHR: 153 METS: 7.5 MAXIMUM STAGE REACHED: III TOTAL EXERCISE TIME: 6 minutes 27 seconds CLINICAL INFORMATION: Baseline EKG revealed normal sinus rhythm with inferolateral ST abnormality of a nonspecific type. The patient walked on a standard Sonny protocol for a total duration of 6 minutes 27 seconds achieved a maximal heart rate of 146 beats per minute, which is more than 85% of predicted maximal. She developed some fatigue and shortness of breath but did not have any angina. There was no arrhythmia. EKG revealed more prominent inferolateral ST-segment abnormality, but this is considered an inconclusive finding given the fact that there were resting changes to begin with. By EKG criteria, this is an inconclusive stress test because of resting EKG changes with fair exercise capacity. Baseline echo images revealed normal wall motion and wall thickening of all segments. At peak exercise, there was good augmentation of left ventricular wall motion and wall thickening of all segments suggesting that there is no evidence of stress-induced ischemia on this study. FINAL IMPRESSION: 1. By EKG criteria, this is an inconclusive stress test because of resting EKG changes. Fair exercise capacity was noted and there was no angina. 2. Normal stress echocardiogram. MMODL / IJN: [id number] /
== END 2018-10-27 17:11 | disposition home or self-care (01) ==
LOC: EC 11:50 → 1SOBS 15:01
PROVIDERS: ADMIT Family Medicine; ATTEND Family Medicine
DX: I16.0 Hypertensive urgency (principal); R07.89 Other chest pain; I10 Essential (primary) hypertension; E78.5 Hyperlipidemia, unspecified; R61 Generalized hyperhidrosis; R53.1 Weakness; R93.1 Abnormal findings on diagnostic imaging of heart and coronary circulation; R94.31 Abnormal electrocardiogram [ECG] [EKG]; F41.9 Anxiety disorder, unspecified; Z79.899 Other long term (current) drug therapy; Z88.0 Allergy status to penicillin; Z90.49 Acquired absence of other specified parts of digestive tract; Z96.641 Presence of right artificial hip joint; Z86.19 Personal history of other infectious and parasitic diseases; Z87.891 Personal history of nicotine dependence
CPT/HCPCS: 96361 ×2; 96374; 99285; 36415; 93005; 93306; 93351; 80061; 80053; 84443; 83605; 83735; 84100; 84484 ×2; 85025; 85049; 85610; 85730; 81001; 71046; G0378 ×2; J1644 ×2; S0106

== ENCOUNTER 2018-11-19 10:53 | Inpatient (IN) | payer MEDICARE ==
--- NOTE | 2018-11-19 11:07 | NM ---
EXAMINATION TYPE: NM stress cardiolite complete DATE OF EXAM: 11/19/2018 COMPARISON: Prior nuclear medicine stress test August 17, 2012 HISTORY: History of hypertension and hypercholesterolemia presents with chest pain TECHNIQUE: After the intravenous administration of 10.14 mCi Tc 99m Sestamibi - Rest images obtained 45 minutes post injection. The patient exercised using a DONTAE protocol and 1 minute prior to peak exercise was injected with 25.8 mCi Tc 99m Sestamibi - Stress images obtained 15 minutes post inject ion. FINDINGS: Targeted heart rate was achieved during performance of the study. Review of stress and rest SPECT samanta ges demonstrates no distinct perfusion abnormality. Gated analysis shows normal wall motion with an estimated left ventricular ejection fraction of 79 %. IMPRESSION: No scintigraphic evidence for reversible ischemia
--- NOTE | 2018-11-19 11:14 | P.STRESS ---
- Stress Test Note Stress Test Results/Findings: Exam Performed: NM stress cardiolite complete Exam Date: 11/19/18 Reason for Exam: Chest Pain Height: 5 ft 4 in Weight: 72.575 kg Protocol: Sonny Stage: 2 Duration of Exercise: 5:30 Resting Heart Rate: 74 Resting Blood Pressure: 121/77 Maximum Achieved Heart Rate: 140 Maximum Achieved Blood Pressure: 159/80 85% PMHR: 130 100% PMHR: 153 METS: 7.1 Technologist Comment: Stress Test Results/Findings: Baseline heart rate 74 beats a minute Baseline blood pressure 121/77 mmHg based) ECG shows sinus rhythm with ST depression with T-wave inversions inferolaterally which appear different than what was noted in October Patient excised on a Sonny protocol for 5 minutes achieving a peak heart rate of 140 beats a minute normal blood pressure response. She is very short of breath at peak exercise the ECG changes became even more pronounced with exercise with a normal blood pressure response Nuclear portion will be reported separately This was discussed with Dr. Graham and with Dr. Pink
--- NOTE | 2018-11-19 11:19 | P.CRDCN ---
History of Present Illness History of present illness: This is a pleasant 68-year-old female past medical history significant for hypertension, dyslipidemia and remote history of smoking in 1978. 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 She presented to the stress lab today for her primary care physician for Cardiolite stress test. Initial EKG prior to exercise revealed significant ST depression inferiorly with T-wave inversions. The reason for the stress test per her primary care physician was increased fatigue and exertional shortness of breath. She states this has been going on since approximately October. She did undergo stress echocardiogram in mid October revealing inconclusive EKG portion secondary to baseline EKG abnormalities with normal echocardiographic response to exercise. At that time her EKG showed nonspecific T-wave inversions with no ST depression. Plan exercise she became visibly short of breath and her EKG abnormalities worsened. She denies any symptoms of chest discomfort, dizziness, palpitations, nausea, vomiting or diaphoresis. At the time of my exam: CONSTITUTIONAL: Denies fever. Denies chills. EYES: Denies blurred vision. Denies vision changes. Denies eye pain. EARS, NOSE, MOUTH & THROAT: Denies headache. Denies sore throat. Denies ear pain. CARDIOVASCULAR: Denies chest pain. Denies shortness of breath. Denies orthopnea. Denies PND. Denies palpitations. RESPIRATORY: Denies cough. GASTROINTESTINAL: Denies abdominal pain. Denies diarrhea. Denies constipation. Denies nausea. Denies vomiting. MUSCULOSKELETAL: Denies myalgias. INTEGUMENTARY: Denies pruitis. Denies rash. NEUROLOGIC: Denies numbness. Denies tingling. Denies weakness. PSYCHIATRIC: Denies anxiety. Denies depression. ENDOCRINE: Denies fatigue. Denies weight change. Denies polydipsia. Denies polyurina. GENITOURINARY: Denies burning, hematuria or urgency with micturation. HEMATOLOGIC: Denies history of anemia. Denies bleeding. Blood pressure 108/67 heart rate 92 afebrile maintaining oxygen saturation on room air GENERAL: This is a 68-year-old female in no apparent distress at the time of my examination. HEENT: Head is atraumatic, normocephalic. Pupils are equal, round. Sclerae anicteric. Conjunctivae are clear. Mucous membranes of the mouth are moist. Neck is supple. There is no jugular venous distention. No carotid bruit is heard. LUNGS: Clear to auscultation no wheezes, rales or rhonchi. No chest wall tenderness is noted on palpation or with deep breathing. HEART: Regular rate and rhythm without murmurs, rubs or gallops. S1 and S2 heard. ABDOMEN: Soft, nontender. Bowel sounds are heard. No organomegaly noted. EXTREMITIES: No evidence of peripheral edema and no calf tenderness noted. VASCULAR: Radial and dorsalis pedis pulses palpated, no evidence of clubbing. NEUROLOGIC: Patient is awake, alert and oriented x3. ASSESSMENT Unstable angina with EKG changes Hypertension Dyslipidemia PLAN We have recommended admitting the patient to the hospital for symptoms of unstable angina with EKG changes suggestive of ischemia. Repeat 2-D echocardiogram and Doppler study to assess cardiac structure and function in the setting of unstable angina with EKG changes. This is been discussed with Dr. Chung in the emergency department as well as Dr. Graham who will be following with her on [facility]. Further recommendations to follow. Thank you kindly for this consultation. Nurse Practitioner note has been reviewed, I agree with a documented findings and plan of care. Patient was seen and examined. Past Medical History Past Medical History: Hyperlipidemia, Hypertension Additional Past Medical History / Comment(s): h. pylori History of Any Multi-Drug Resistant Organisms: None Reported Past Surgical History: Joint Replacement, Tonsillectomy Additional Past Surgical History / Comment(s): knee hip replacement Past Anesthesia/Blood Transfusion Reactions: Motion Sickness, Postoperative Nausea & Vomiting (PONV) Past Psychological History: No Psychological Hx Reported, Anxiety Smoking Status: Former smoker Past Alcohol Use History: Rare Past Drug Use History: None Reported - Past Family History Father Family Medical History: Cancer Mother Family Medical History: Cancer Family Additional Family Medical History / Comment(s): No history of premature CAD Medications and Allergies Home Medications Medication Instructions Recorded Confirmed Type Folic Acid 1 mg PO DAILY 04/12/17 10/26/18 History Hydrochlorothiazide [Hydrodiuril] 25 mg PO DAILY 04/12/17 10/26/18 History Olmesartan [Benicar] 20 mg PO DAILY 04/12/17 10/26/18 History Omeprazole 40 mg PO DAILY PRN 04/12/17 10/26/18 History Simvastatin [Zocor] 20 mg PO HS 04/12/17 10/26/18 History buPROPion HCL [Wellbutrin SR] 150 mg PO BID 04/12/17 10/26/18 History Cholecalciferol [Vitamin D3 (25 1,000 unit PO DAILY 10/26/18 10/26/18 History Mcg = 1000 Iu)] Cyanocobalamin (Vitamin B-12) 1,000 mcg PO DAILY 10/26/18 10/26/18 History [Vitamin B-12] Vit C/E/Zn/Coppr/Lutein/Zeaxan 1 cap PO DAILY 10/26/18 10/26/18 History [Preservision Areds 2 Softgel] amLODIPine [Norvasc] 10 mg PO DAILY #30 tab 10/27/18 Rx Allergies Allergy/AdvReac Type Severity Reaction Status Date / Time Penicillins Allergy Rash/Hives Verified 11/19/18 11:01 Physical Exam Vitals: Vital Signs Temp Pulse Resp BP Pulse Ox 11/19/18 10:58 98.7 F 92 18 108/67 98 Intake and Output 11/18/18 11/19/18 11/19/18 22:59 06:59 14:59 Other: Weight 72.575 kg Results Intake and Output 11/18/18 11/19/18 11/19/18 22:59 06:59 14:59 Other: Weight 72.575 kg Patient Weight 11/20/18 06:59 Weight 72.575 kg
[2018-11-19] MEDS ORDERED: ASPIRIN 325 MG TAB PO STA (11:20)
[2018-11-19] MEDS ORDERED: MORPHINE SULFATE 4 MG/ML SYRINGE IV PRN (11:31)
[2018-11-19] MEDS ORDERED: HEPARIN SODIUM,PORCINE 5,000 UNIT/ML 1 ML VIAL IV PRN (11:31)
[2018-11-19] MEDS ORDERED: HEPARIN SODIUM,PORCINE 5,000 UNIT/ML 1 ML VIAL IV ONE (11:31)
[2018-11-19] MEDS ORDERED: ACETAMINOPHEN TAB 325 MG TAB PO PRN (11:31)
[2018-11-19] MEDS ORDERED: NALOXONE 0.4 MG/ML 1 ML VIAL IV PRN (11:31)
--- NOTE | 2018-11-19 11:45 | ED ---
General Adult HPI - General Chief complaint: Shortness of Breath Stated complaint: chest pain Time Seen by Provider: 11/19/18 10:59 Source: patient, RN notes reviewed, old records reviewed Mode of arrival: wheelchair Limitations: no limitations - History of Present Illness Initial comments: 68-year-old female presenting with abnormal outpatient stress test. Patient was sent over from the stress lab for admission with concerning ischemic changes on stress testing. She is asymptomatic at the time my evaluation. She's been complaining of dyspnea no pain complaints, no chest pain, no arm pain or jaw pain. She has no known history of coronary artery disease. She was sent for stress test by her primary care physician. Denies cough or fever. Denies vomiting. - Related Data Home Medications Medication Instructions Recorded Confirmed Folic Acid 1 mg PO DAILY 04/12/17 11/19/18 Hydrochlorothiazide [Hydrodiuril] 25 mg PO DAILY 04/12/17 11/19/18 Olmesartan [Benicar] 20 mg PO DAILY 04/12/17 11/19/18 Omeprazole 40 mg PO DAILY PRN 04/12/17 11/19/18 Simvastatin [Zocor] 20 mg PO HS 04/12/17 11/19/18 buPROPion HCL [Wellbutrin SR] 150 mg PO BID 04/12/17 11/19/18 Cholecalciferol [Vitamin D3 (25 1,000 unit PO DAILY 10/26/18 11/19/18 Mcg = 1000 Iu)] Cyanocobalamin (Vitamin B-12) 1,000 mcg PO DAILY 10/26/18 11/19/18 [Vitamin B-12] Vit C/E/Zn/Coppr/Lutein/Zeaxan 1 cap PO DAILY 10/26/18 11/19/18 [Preservision Areds 2 Softgel] Previous Rx's Medication Instructions Recorded amLODIPine [Norvasc] 10 mg PO DAILY #30 tab 10/27/18 Allergies Allergy/AdvReac Type Severity Reaction Status Date / Time Penicillins Allergy Rash/Hives Verified 11/19/18 11:37 Review of Systems ROS Statement: Those systems with pertinent positive or pertinent negative responses have been documented in the HPI. ROS Other: All systems not noted in ROS Statement are negative. Past Medical History Past Medical History: Hyperlipidemia, Hypertension Additional Past Medical History / Comment(s): h. pylori History of Any Multi-Drug Resistant Organisms: None Reported Past Surgical History: Joint Replacement, Tonsillectomy Additional Past Surgical History / Comment(s): knee hip replacement Past Anesthesia/Blood Transfusion Reactions: Motion Sickness, Postoperative Nausea & Vomiting (PONV) Past Psychological History: No Psychological Hx Reported, Anxiety Smoking Status: Former smoker Past Alcohol Use History: Rare Past Drug Use History: None Reported - Past Family History Father Family Medical History: Cancer Mother Family Medical History: Cancer Family Additional Family Medical History / Comment(s): No history of premature CAD General Exam Limitations: no limitations General appearance: alert, in no apparent distress Head exam: Present: atraumatic, normocephalic Eye exam: Present: normal appearance, PERRL ENT exam: Present: normal exam Neck exam: Present: normal inspection. Absent: tenderness, meningismus Respiratory exam: Present: normal lung sounds bilaterally. Absent: respiratory distress Cardiovascular Exam: Present: regular rate, normal rhythm GI/Abdominal exam: Present: soft. Absent: distended, tenderness Extremities exam: Present: normal inspection. Absent: full ROM, tenderness Neurological exam: Present: alert, oriented X3 Psychiatric exam: Present: normal affect, normal mood Skin exam: Present: warm, dry, intact Course Vital Signs 11/19/18 11/19/18 10:58 11:41 Temperature 98.7 F Pulse Rate 92 73 Respiratory 18 16 Rate Blood Pressure 108/67 119/63 O2 Sat by Pulse 98 97 Oximetry EKG Findings - EKG Comments: EKG Findings:: EKG: Normal sinus rhythm possible left atrial enlargement, T-wave inversion and flattening in the precordial leads, no ST segment elevation. Rate of 74, DE interval 170, QRS duration 72, QTC 463. Medical Decision Making - Medical Decision Making 68-year-old female presenting with abnormal stress test. Patient sent to the emergency department for admission. She will be admitted, both cardiology and admitting physician are aware of this patient. She is given aspirin initiated on heparin. Laboratory studies, and chest x-ray will be obtained, these are pending. - Lab Data Result diagrams: 11/19/18 11:36 11/19/18 11:36 Disposition Clinical Impression: Unstable angina Disposition: ADMITTED IP TO THIS HOSP Condition: Stable Is patient prescribed a controlled substance at d/c from ED?: No Decision to Admit Reason: Admit from EC Decision Date: 11/19/18 Decision Time: 12:24
--- NOTE | 2018-11-19 12:04 | XR ---
EXAMINATION TYPE: XR chest 1V portable DATE OF EXAM: 11/19/2018 CLINICAL HISTORY: Chest pain . Abnormal stress test today. TECHNIQUE: Single AP portable frontal view of the chest is obtained. COMPARISON: Chest x-ray from October 26, 2018 FINDINGS: There is chronic parenchymal change without suspicious focal airspace opacity, pleural eff usion, or pneumothorax seen bilaterally. Cardiac silhouette size appears within normal limits. [place] ing EKG leads are redemonstrated. Osseous structures are demineralized. IMPRESSION: Overall stable findings, chronic changes without acute pulmonary process
[2018-11-19 12:12] LABS: ALT 35 U/L (9-52); AST 30 U/L (14-36); Albumin 4.5 g/dL (3.5-5.0); Alkaline Phosphatase 76 U/L (38-126); Anion Gap 7 mmol/L; Blood Urea Nitrogen 16 mg/dL (7-17); Calcium 9.8 mg/dL (8.4-10.2); Carbon Dioxide 30 mmol/L (22-30); Chloride 101 mmol/L (98-107); Glucose 93 mg/dL (74-99); Magnesium 2.1 mg/dL (1.6-2.3); Potassium 3.3 mmol/L (3.5-5.1); Sodium 138 mmol/L (137-145); Total Bilirubin 0.6 mg/dL (0.2-1.3)
[2018-11-19 12:19] LABS: INR 0.9 (<1.2); Prothrombin Time 9.7 sec (9.0-12.0)
[2018-11-19 12:21] LABS: Basophils % (A) 1 %; Eosinophils # (A) 0.1 k/uL (0-0.7); Eosinophils % (A) 1 %; HCT 38.9 % (34.0-46.0); HGB 13.3 gm/dL (11.4-16.0); Lymphocytes # (A) 1.8 k/uL (1.0-4.8); Lymphocytes % (A) 23 %; MCH 30.4 pg (25.0-35.0); MCHC 34.1 g/dL (31.0-37.0); Mean Platelet Volume 7.1; Monocytes # (A) 0.4 k/uL (0-1.0); Monocytes % (A) 5 %; Neutrophils # (A) 5.2 k/uL (1.3-7.7); Neutrophils % (A) 68 %; Platelet Count 378 k/uL (150-450); RBC 4.37 m/uL (3.80-5.40); RDW 12.6 % (11.5-15.5); WBC 7.6 k/uL (3.8-10.6)
[2018-11-19] MEDS ORDERED: POTASSIUM CHLORIDE ER 20 MEQ TAB.ER PO STA (12:21)
[2018-11-19] MEDS: HEPARIN SOD,PORK IN 0.45% NACL 25,000 UNIT in 0.45% NACL 1 250ML.BAG IV SCH (12:38)
--- NOTE | 2018-11-19 13:31 | ECHOF ---
Referral Reason:sob, abn ekg MEASUREMENTS -------- HEIGHT: 162.6 cm WEIGHT: 72.6 kg BP: 119/63 RVIDd: 3.0 cm (< 3.3) IVSd: 1.2 cm (0.6 - 1.1) LVIDd: 3.1 cm (3.9 - 5.3) LVPWd: 1.1 cm (0.6 - 1.1) IVSs: 1.3 cm LVIDs: 2.4 cm LVPWs: 1.6 cm LA Diam: 3.2 cm (2.7 - 3.8) LAESV Index (A-L): 17.77 ml/m Ao Diam: 3.0 cm (2.0 - 3.7) AV Cusp: 1.6 cm (1.5 - 2.6) MV EXCURSION: 17.310 mm (> 18.000) MV EF SLOPE: 15 mm/s (70 - 150) EPSS: 0.1 cm MV E Pranay: 0.91 m/s MV DecT: 285 ms MV A Pranay: 1.07 m/s MV E/A Ratio: 0.85 RAP: 5.00 mmHg RVSP: 24.03 mmHg FINDINGS -------- Sinus rhythm. This was a technically adequate study. The left ventricular size is normal. There is borderline concentric left ventricular hypertrophy. Overall left ventricular systolic function is normal with, an EF between 60 - 65 %. The right ventricle is normal in size. Normal LA size by volume 22+/-6 ml/m2. The right atrium is normal in size. Interatrial and interventricular septum intact. There is mild aortic valve sclerosis. The mitral valve is normal. Mild tricuspid regurgitation present. Right ventricular systolic pressure is normal at < 35 mmHg. Trace/mild (physiologic) pulmonic regurgitation. The aortic root size is normal. Normal inferior vena cava with normal inspiratory collapse consistent with estimated right atrial pre ssure of 5 mmHg. There is no pericardial effusion. CONCLUSIONS -------- 1. Sinus rhythm. 2. This was a technically adequate study. 3. The left ventricular size is normal. 4. There is borderline concentric left ventricular hypertrophy. 5. Overall left ventricular systolic function is normal with, an EF between 60 - 65 %. 6. The right ventricle is normal in size. 7. Normal LA size by volume 22+/-6 ml/m2. 8. The right atrium is normal in size. 9. Interatrial and interventricular septum intact. 10. There is mild aortic valve sclerosis. 11. The mitral valve is normal. 12. Mild tricuspid regurgitation present. 13. Right ventricular systolic pressure is normal at < 35 mmHg. 14. Trace/mild (physiologic) pulmonic regurgitation. 15. The aortic root size is normal. 16. Normal inferior vena cava with normal inspiratory collapse consistent with estimated right atrial pressure of 5 mmHg. 17. There is no pericardial effusion. CANNERY TENDER ENGINEER: Awa Beck RDCS
[2018-11-19] MEDS ORDERED: PANTOPRAZOLE 40 MG TABLET PO PRN (15:08)
--- NOTE | 2018-11-19 15:53 | P.HPIM ---
History of Present Illness 68-year-old pleasant female came in with complaints of dizziness going on for about the 2 months has been getting worse. Patient says her blood pressure is a not under control although has a systolic blood pressure is only 102 patient was recently started On amlodipine couple weeks ago. Patient was on hydrocodone thiazide and AYANA inhibitor for long time and patient was not started on new any of the medications patient has low energy lately for more than 2 months. Along with some subjective shortness of breath patient had a remote mild a smoking history only briefly. Patient denied any fever chills nausea vomiting. Patient had a stress test which was ordered by primary care physician patient had a Cardiolite stress test Cardiolite portion of the stresses is negative, patient was apparently asymptomatic during the stress test and had some significant ST-T wave changes on the EKG part of the stress test because of which cardiology admitted the patient for possible cardiac catheterization considering her on explain symptoms of lightheadedness and shortness of breath for more than 2 months. Patient denied any chest pain at this time. Review of Systems REVIEW OF SYSTEMS: CONSTITUTIONAL: No fever, no malaise, no fatigue. HEENT: No recent visual problems or hearing problems. Denied any sore throat. CARDIOVASCULAR: No chest pain, orthopnea, PND, no palpitations, no syncope. PULMONARY: , no cough, no hemoptysis. GASTROINTESTINAL: No diarrhea, no nausea, no vomiting, no abdominal pain. NEUROLOGICAL: No headaches, no weakness, no numbness. HEMATOLOGICAL: Denies any bleeding or petechiae. GENITOURINARY: Denies any burning micturition, frequency, or urgency. MUSCULOSKELETAL/RHEUMATOLOGICAL: Denies any joint pain, swelling, or any muscle pain. ENDOCRINE: Denies any polyuria or polydipsia. The rest of the 14-point review of systems is negative. Past Medical History Past Medical History: Hyperlipidemia, Hypertension Additional Past Medical History / Comment(s): h. pylori History of Any Multi-Drug Resistant Organisms: None Reported Past Surgical History: Joint Replacement, Tonsillectomy Additional Past Surgical History / Comment(s): knee hip replacement Past Anesthesia/Blood Transfusion Reactions: Motion Sickness, Postoperative Nausea & Vomiting (PONV) Smoking Status: Former smoker - Past Family History Father Family Medical History: Cancer Additional Family Medical History / Comment(s): bladder cancer Mother Family Medical History: Cancer Additional Family Medical History / Comment(s): Stomach cancer Family Family Medical History: Cancer Additional Family Medical History / Comment(s): No history of premature CAD Medications and Allergies Home Medications Medication Instructions Recorded Confirmed Type Folic Acid 1 mg PO DAILY 04/12/17 11/19/18 History Hydrochlorothiazide [Hydrodiuril] 25 mg PO DAILY 04/12/17 11/19/18 History Olmesartan [Benicar] 20 mg PO DAILY 04/12/17 11/19/18 History Omeprazole 40 mg PO DAILY PRN 04/12/17 11/19/18 History Simvastatin [Zocor] 20 mg PO HS 04/12/17 11/19/18 History buPROPion HCL [Wellbutrin SR] 150 mg PO BID 04/12/17 11/19/18 History Cholecalciferol [Vitamin D3 (25 1,000 unit PO DAILY 10/26/18 11/19/18 History Mcg = 1000 Iu)] Cyanocobalamin (Vitamin B-12) 1,000 mcg PO DAILY 10/26/18 11/19/18 History [Vitamin B-12] Vit C/E/Zn/Coppr/Lutein/Zeaxan 1 cap PO DAILY 10/26/18 11/19/18 History [Preservision Areds 2 Softgel] amLODIPine [Norvasc] 10 mg PO DAILY #30 tab 10/27/18 11/19/18 Rx Allergies Allergy/AdvReac Type Severity Reaction Status Date / Time Penicillins Allergy Rash/Hives Verified 11/19/18 11:37 Physical Exam Vitals: Vital Signs Temp Pulse Resp BP Pulse Ox 11/19/18 12:30 70 16 101/64 96 11/19/18 12:00 75 16 119/63 97 11/19/18 11:41 73 16 119/63 97 11/19/18 10:58 98.7 F 92 18 108/67 98 Intake and Output 11/19/18 11/19/18 11/19/18 06:59 14:59 22:59 Intake Total 240 Balance 240 Intake: Oral 240 Other: Weight 72.575 kg PHYSICAL EXAMINATION: GENERAL: The patient is alert and oriented x3, not in any acute distress. Well developed, well nourished. HEENT: Pupils are round and equally reacting to light. EOMI. No scleral icterus. No conjunctival pallor. Normocephalic, atraumatic. No pharyngeal erythema. No thyromegaly. CARDIOVASCULAR: S1 and S2 present. No murmurs, rubs, or gallops. PULMONARY: Chest is clear to auscultation, no wheezing or crackles. ABDOMEN: Soft, nontender, nondistended, normoactive bowel sounds. No palpable organomegaly. MUSCULOSKELETAL: No joint swelling or deformity. EXTREMITIES: No cyanosis, clubbing, or pedal edema. NEUROLOGICAL: Gross neurological examination did not reveal any focal deficits. SKIN: No rashes. Results CBC & Chem 7: 11/19/18 11:36 11/19/18 11:36 Labs: Abnormal Lab Results - Last 24 Hours (Table) 11/19/18 Range/Units 11:36 Potassium 3.3 L (3.5-5.1) mmol/L Thrombosis Risk Factor Assmnt - Choose All That Apply Any of the Below Risk Factors Present?: Yes Each Factor Represents 1 point: Obesity (BMI >25) Other Risk Factors: Yes Each Risk Factor Represents 2 Points: Age 61-74 years Other congenital or acquired thrombophilia - If yes, enter type in comment: No Thrombosis Risk Factor Assessment Total Risk Factor Score: 3 Thrombosis Risk Factor Assessment Level: Moderate Risk Assessment and Plan Plan: -Positive stress test: Patient will undergo characterization tomorrow. Patient was started on heparin and 70 -Lightheadedness Related to Coronary Artery Disease but I Believe It's Mostly Because of Low Blood Pressure I'll Hold off on Hydrochlorothiazide and Amlodipine Will Continue with Her Losartan, Believe Her Elevated Blood Pressure for Few Months Is Secondary to Inappropriate Measuring of Blood Pressure Are [place] Hypertension and Counseling regarding Appropriate Way to Check Blood Pressure. -Discussed Esophageal Reflux Disease -Hyperlipidemia -Mild hypokalemia: Secondary to thiazide potassium will be supplemented -Hypertension management as mentioned above -Due to prophylaxis early ambulation
[2018-11-19] MEDS: buPROPion SR 150 MG TABLET.ER PO SCH (20:38)
[2018-11-19] MEDS ORDERED: ATORVASTATIN 10 MG TAB PO SCH (21:00)
[2018-11-20 05:05] VITALS: TEMP 98.5
[2018-11-20 06:12] LABS: Basophils # (A) 0.1 k/uL (0-0.2); Basophils % (A) 1 %; Eosinophils # (A) 0.2 k/uL (0-0.7); Eosinophils % (A) 2 %; HCT 38.9 % (34.0-46.0); HGB 12.9 gm/dL (11.4-16.0); Lymphocytes # (A) 3.2 k/uL (1.0-4.8); Lymphocytes % (A) 47 %; MCH 29.5 pg (25.0-35.0); MCHC 33.2 g/dL (31.0-37.0); MCV 88.8 fL (80.0-100.0); Mean Platelet Volume 6.9; Monocytes # (A) 0.4 k/uL (0-1.0); Monocytes % (A) 6 %; Neutrophils # (A) 2.8 k/uL (1.3-7.7); Neutrophils % (A) 40 %; Platelet Count 326 k/uL (150-450); RBC 4.38 m/uL (3.80-5.40); RDW 13.6 % (11.5-15.5); WBC 6.9 k/uL (3.8-10.6)
[2018-11-20] MEDS ORDERED: SODIUM CHLORIDE 0.9% 1,000 ML in EMPTY BAG 1 BAG IV ONE (08:02)
[2018-11-20] MEDS ORDERED: ALPRAZolam 0.5 MG TAB PO PRN (08:02)
[2018-11-20] MEDS ORDERED: NITROGLYCERIN SL TABS 0.4 MG TAB SUBLINGUAL PRN (08:02)
[2018-11-20] MEDS ORDERED: ASPIRIN 325 MG TAB PO STA (08:02)
[2018-11-20] MEDS ORDERED: ALPRAZolam 0.25 MG TAB PO PRN (08:02)
[2018-11-20] MEDS ORDERED: ATORVASTATIN 80 MG TAB PO STA (08:02)
[2018-11-20] MEDS: buPROPion SR 150 MG TABLET.ER PO SCH (08:25)
[2018-11-20] MEDS: HEPARIN SOD,PORK IN 0.45% NACL 25,000 UNIT in 0.45% NACL 1 250ML.BAG IV SCH (08:47)
[2018-11-20] MEDS ORDERED: VERAPAMIL 2.5 MG/ML 2 ML AMP ONE (08:58)
[2018-11-20] MEDS ORDERED: LIDOCAINE 1% INJ 10MG/ML (20 ML MDV) ONE (08:59)
[2018-11-20] MEDS ORDERED: LOSARTAN 50 MG TAB PO SCH (09:00)
[2018-11-20] MEDS ORDERED: IV FLUID CONTINUATION 900 ML IV ONE (09:11)
[2018-11-20] MEDS ORDERED: MIDAZOLAM (PF) 2 MG/2 ML VIAL IV ONE ×2 (09:28→09:37)
[2018-11-20] MEDS ORDERED: LIDOCAINE 1% INJ 10MG/ML (20 ML MDV) SQ ONE (09:30)
[2018-11-20] MEDS ORDERED: HEPARIN SODIUM 1,000 UN/ML (10ML VL) ONE (09:31)
[2018-11-20] MEDS: VERAPAMIL SYRINGE (5 MG/10 ML) INTRAARTER ONE ×2 (09:33→09:40)
[2018-11-20] MEDS ORDERED: fentaNYL (PF) 50 MCG/ML 2 ML AMP ONE (09:33)
[2018-11-20 09:34] VITALS: RESP 20
[2018-11-20] MEDS ORDERED: fentaNYL (PF) 50 MCG/ML 2 ML AMP IV ONE (09:36)
[2018-11-20] MEDS ORDERED: HEPARIN SODIUM 1,000 UN/ML (10ML VL) IV ONE (09:37)
[2018-11-20] MEDS ORDERED: IOPAMIDOL-370 125ML BTL INJ ONE (09:39)
[2018-11-20] MEDS ORDERED: RX INFO: IV CONTRAST WAS GIVEN 1 EACH MISC MISCELLANE PRN (09:46)
[2018-11-20] MEDS ORDERED: SODIUM CHLORIDE 0.9% 1,000 ML IV SCH (10:00)
--- NOTE | 2018-11-20 10:02 | P.PN ---
Subjective Progress Note Date: 11/20/18 Principal diagnosis: Chest pain This is a 68-year-old female patient with a past medical history significant for hypertension and dyslipidemia who underwent a stress test yesterday came in to be equivocal for ischemia. Because of that she was advised to undergo a heart catheterization. She has been chest pain-free throughout the night. Objective - Vital Signs Vital signs: Vital Signs Temp 98.5 F 11/20/18 08:00 Pulse 68 11/20/18 08:00 Resp 20 11/20/18 08:00 BP 109/64 11/20/18 08:00 Pulse Ox 98 11/20/18 08:00 Intake & Output 11/19/18 11/20/18 11/20/18 18:59 06:59 18:59 Intake Total 480 50 Balance 480 50 Weight 72.575 kg 72.6 kg Intake: IV 50 Oral 480 Other: # Voids 1 1 - Constitutional General appearance: Present: no acute distress - Respiratory Respiratory: bilateral: CTA - Cardiovascular Rhythm: regular Heart sounds: normal: S1, S2 - Labs CBC & Chem 7: 11/20/18 05:47 11/19/18 11:36 Labs: Abnormal Lab Results - Last 24 Hours (Table) 11/19/18 11/19/18 11/20/18 Range/Units 11:36 18:39 05:47 APTT 61.8 H 71.5 H (22.0-30.0) sec Potassium 3.3 L (3.5-5.1) mmol/L Assessment and Plan Assessment: Assessment #1 chest discomfort #2 abnormal stress test #3 hypertension and dyslipidemia Plan #1 proceeding with heart catheterization #2 the procedure in details was explained to her.
--- NOTE | 2018-11-20 10:16 | P.DS ---
Providers Date of admission: 11/19/18 11:31 Attending physician: Garfield Grimm MD Consults: 11/19/18 11:32 Consult Physician Urgent Consulting Provider: Leo Graham Consult Reason/Comments: Abnormal stress Do you want consulting provider notified?: Already Contacted Primary care physician: Noris Stoddard [facility] Course: 68-year-old pleasant female came in because of abnormal stress test patient un derwent a cardiac catheterization which did not show any significant atherosclerotic coronary occlusive disease that needed stenting her coronaries are clear. Patient will be discharged today. Patient had symptoms of dizziness and fatigue which I believe is secondary to her medications. Patient blood pressure is an 100 systolic when she came in here patient blood pressure remains low at discontinued Calcium channel misti as well as had a growth present patient will be continued on AYANA inhibitor. Patient was counseled regarding appropriate way of checking blood pressure at home and taking it to the PCPs office so that medications can be titrated. Patient has unusual elevations of blood pressures when she visits her PCP. PHYSICAL EXAMINATION: GENERAL: The patient is alert and oriented x3, not in any acute distress. Well developed, well nourished. HEENT: Pupils are round and equally reacting to light. EOMI. No scleral icterus. No conjunctival pallor. Normocephalic, atraumatic. No pharyngeal erythema. No thyromegaly. CARDIOVASCULAR: S1 and S2 present. No murmurs, rubs, or gallops. PULMONARY: Chest is clear to auscultation, no wheezing or crackles. ABDOMEN: Soft, nontender, nondistended, normoactive bowel sounds. No palpable organomegaly. MUSCULOSKELETAL: No joint swelling or deformity. EXTREMITIES: No cyanosis, clubbing, or pedal edema. NEUROLOGICAL: Gross neurological examination did not reveal any focal deficits. SKIN: No rashes. Please refer to my dictation of H&P for further details of hospitalization course and the chronic medical problems that were addressed here during hospitalization Patient Condition at Discharge: Stable Plan - Discharge Summary Discharge Rx Participant: No New Discharge Prescriptions: Continue buPROPion HCL [Wellbutrin SR] 150 mg PO BID Simvastatin [Zocor] 20 mg PO HS Olmesartan [Benicar] 20 mg PO DAILY Folic Acid 1 mg PO DAILY Omeprazole 40 mg PO DAILY PRN PRN Reason: Gi Upset Cholecalciferol [Vitamin D3 (25 Mcg = 1000 Iu)] 1,000 unit PO DAILY Vit C/E/Zn/Coppr/Lutein/Zeaxan [Preservision Areds 2 Softgel] 1 cap PO DAILY Cyanocobalamin (Vitamin B-12) [Vitamin B-12] 1,000 mcg PO DAILY Discontinued Hydrochlorothiazide [Hydrodiuril] 25 mg PO DAILY amLODIPine [Norvasc] 10 mg PO DAILY #30 tab Discharge Medication List Folic Acid 1 mg PO DAILY 04/12/17 [History] Olmesartan [Benicar] 20 mg PO DAILY 04/12/17 [History] Omeprazole 40 mg PO DAILY PRN 04/12/17 [History] Simvastatin [Zocor] 20 mg PO HS 04/12/17 [History] buPROPion HCL [Wellbutrin SR] 150 mg PO BID 04/12/17 [History] Cholecalciferol [Vitamin D3 (25 Mcg = 1000 Iu)] 1,000 unit PO DAILY 10/26/18 [History] Cyanocobalamin (Vitamin B-12) [Vitamin B-12] 1,000 mcg PO DAILY 10/26/18 [History] Vit C/E/Zn/Coppr/Lutein/Zeaxan [Preservision Areds 2 Softgel] 1 cap PO DAILY 10/26/18 [History] Follow up Appointment(s)/Referral(s): Zaki Lee MD [STAFF PHYSICIAN] - 1 Week Noris Pink MD [Primary Care Provider] - 3 Days Discharge Disposition: HOME SELF-CARE
[2018-11-20 11:13] VITALS: PULSE 78
[2018-11-20 11:50] VITALS: BP 120/62
--- NOTE | 2018-11-20 15:19 | CC ---
CARDIAC CATHETERIZATION REPORT DATE OF SERVICE: November 20, 2018 PERFORMING PHYSICIAN: Leo Graham MD, photostat operator. PROCEDURE PERFORMED: 1. Selective right and left coronary angiogram. 2. Left heart catheterization. INDICATION: This is a pleasant 68-year-old female patient who was experiencing chest discomfort and underwent an exercise Cardiolite stress test with an EKG component came in to be quite concerning for ischemia. Because of that, a heart catheterization was advised. APPROACH: Right radial artery. COMPLICATION: None. LEVEL OF SEDATION: Moderate with sedation length of 11 minutes. PROCEDURE DESCRIPTION: After obtaining an informed consent, the patient was brought to the cardiac sawyer cork slabs. The right radial artery was cannulated using micropuncture technique, the micropuncture wire passed easily then I placed a 5-Spanish sheath in the right radial artery. After that, I did give the patient 2 mg of verapamil IA and 7000 units of heparin IV. I did selective right and left coronary angiogram using JR4 and JL3.5 catheters. After that, left heart catheterization was performed using the 5-Spanish pigtail catheter. The procedure was completed without any complication. SELECTIVE CORONARY ANGIOGRAM: 1. The right coronary artery is a large caliber vessel and it is a dominant vessel and appeared to be angiographically normal. It bifurcates distally into PDA and PLV branches, both appeared to be angiographically normal. 2. The left main is angiographically normal. It bifurcates into the left circumflex and left anterior descending artery. 3. The left circumflex is a large caliber vessel and it is a nondominant vessel. The left circumflex is angiographically normal. In the midportion, it gives rise into 2 obtuse marginal branches both appeared to be angiographically normal. 4. The LAD: The LAD is angiographically normal. In the midportion, it gives rise into a large diagonal branch which seems to be normal. HEMODYNAMICS: The left ventricular end-diastolic pressure was about 8 mmHg without gradient across the aortic valve. CONCLUSION: 1. Normal coronary angiogram. 2. Normal left ventricular end-diastolic pressure. MMODL / IJN: [id number] /
== END 2018-11-20 16:27 | disposition home or self-care (01) | DRG 287 ==
LOC: EC 10:53 → 3SCARD 11:31
PROVIDERS: ADMIT Internal Medicine; ATTEND Internal Medicine
PROC: B2111ZZ Fluoroscopy of Multiple Coronary Arteries using Low Osmolar Contrast (ICD-10-PCS; 2018-11-20)
PROC: B2151ZZ Fluoroscopy of Left Heart using Low Osmolar Contrast (ICD-10-PCS; 2018-11-20)
PROC: 4A023N7 Measurement of Cardiac Sampling and Pressure, Left Heart, Percutaneous Approach (ICD-10-PCS; principal; 2018-11-20 08:37)
DX: R07.89 Other chest pain (principal); R94.39 Abnormal result of other cardiovascular function study; R42 Dizziness and giddiness; T46.1X5A Adverse effect of calcium-channel blockers, initial encounter; R06.02 Shortness of breath; I10 Essential (primary) hypertension; E78.5 Hyperlipidemia, unspecified; E87.6 Hypokalemia; T50.2X5A Adverse effect of carbonic-anhydrase inhibitors, benzothiadiazides and other diuretics, initial encounter; Z96.649 Presence of unspecified artificial hip joint; Z96.659 Presence of unspecified artificial knee joint; E66.9 Obesity, unspecified; Z87.891 Personal history of nicotine dependence; Y92.009 Unspecified place in unspecified non-institutional (private) residence as the place of occurrence of the external cause; Z79.899 Other long term (current) drug therapy; Z80.0 Family history of malignant neoplasm of digestive organs; Z80.52 Family history of malignant neoplasm of bladder; Z88.0 Allergy status to penicillin
CPT/HCPCS: 36415; 71045; 78452; 80053; 83735; 83880; 84484; 85025; 85379; 85610; 85730; 93005; 93017; 93306; 93458; 96374; 99285

== ENCOUNTER → 2018-11-26 | Outpatient (CLI) | payer MEDICARE | END | disposition home or self-care (01) | LOC: LABWHC1 13:16 | PROVIDERS: ATTEND Family Medicine | DX: I49.9 Cardiac arrhythmia, unspecified (principal); I26.99 Other pulmonary embolism without acute cor pulmonale | CPT/HCPCS: 36415; 85379 ==

== ENCOUNTER 2018-11-30 22:04 | Emergency (ER) | payer MEDICARE ==
[2018-11-30 22:26] VITALS: TEMP 97.9
[2018-11-30] MEDS ORDERED: SODIUM CHLORIDE 0.9% 500 ML 500 ML IV STA (23:56)
--- NOTE | 2018-12-01 00:30 | ED ---
SOB HPI - General Source: patient Mode of arrival: ambulatory Limitations: no limitations <Ariela Melton - Last Filed: 12/01/18 03:20> <Michelle Lyon - Last Filed: 12/01/18 07:47> - General Chief Complaint: Shortness of Breath Stated Complaint: Elevated D Dimer Time Seen by Provider: 11/30/18 23:56 - History of Present Illness Initial Comments: 68-year-old female with past medical history of hypertension and hyperlipidemia presenting today for chief complaint of shortness of breath since October. Patient states that she has had shortness of breath and fatigue since October. She denies any chest pain she states she has had occasional pain in between her shoulders. Patient states she has been in and out of emergency departments a total of 3 times for this complaint. Patient states she had a heart cat heterization about 10 days ago which was performed due to a failed stress test. She states she was told by cardiology that the catheterization was clean she states that she had a having stents placed is not on any anticoagulation therapy. Patient states that due to this persistent shortness of breath her family practitioner ordered a D-dimer test this was obtained Thursday. Patient was called today for results and told to go to emergency department for elevated D-dimer. Patient denies history of DVT she denies any history of coagulation disorders. Patient denies any history of anemia recent travel hemoptysis leg swelling or fevers. Patient denies any upper history symptoms. Patient states she does have a strong family history for pulmonary embolism. Patient states that her father, his mother and an aunt have from pulmonary embolisms in the past. Patient states that the shortness of breath is not at rest she states it is exertional. She states she has not had any current shortness of breath as she is sitting down. Remaining review of systems negative. (Ariela Melton) - Related Data Home Medications Medication Instructions Recorded Confirmed Folic Acid 1 mg PO DAILY 04/12/17 11/30/18 Omeprazole 40 mg PO DAILY PRN 04/12/17 11/30/18 Simvastatin [Zocor] 20 mg PO HS 04/12/17 11/30/18 buPROPion HCL [Wellbutrin SR] 150 mg PO BID 04/12/17 11/30/18 Cholecalciferol [Vitamin D3 (25 1,000 unit PO DAILY 10/26/18 11/30/18 Mcg = 1000 Iu)] Cyanocobalamin (Vitamin B-12) 1,000 mcg PO DAILY 10/26/18 11/30/18 [Vitamin B-12] Vit C/E/Zn/Coppr/Lutein/Zeaxan 1 cap PO DAILY 10/26/18 11/30/18 [Preservision Areds 2 Softgel] amLODIPine [Norvasc] 10 mg PO DAILY 11/30/18 11/30/18 Allergies Allergy/AdvReac Type Severity Reaction Status Date / Time Penicillins Allergy Rash/Hives Verified 11/19/18 11:37 Review of Systems ROS Other: All systems not noted in ROS Statement are negative. <Ariela Melton - Last Filed: 12/01/18 03:20> ROS Other: All systems not noted in ROS Statement are negative. <Michelle Lyon - Last Filed: 12/01/18 07:47> ROS Statement: Those systems with pertinent positive or pertinent negative responses have been documented in the HPI. Past Medical History Past Medical History: Hyperlipidemia, Hypertension Additional Past Medical History / Comment(s): h. pylori History of Any Multi-Drug Resistant Organisms: None Reported Past Surgical History: Joint Replacement, Tonsillectomy Additional Past Surgical History / Comment(s): knee hip replacement Past Anesthesia/Blood Transfusion Reactions: Motion Sickness, Postoperative Nausea & Vomiting (PONV) Past Psychological History: No Psychological Hx Reported, Anxiety Smoking Status: Former smoker - Past Family History Father Family Medical History: Cancer Additional Family Medical History / Comment(s): bladder cancer Mother Family Medical History: Cancer Additional Family Medical History / Comment(s): Stomach cancer Family Family Medical History: Cancer Additional Family Medical History / Comment(s): No history of premature CAD <Ariela Melton - Last Filed: 12/01/18 03:20> General Exam Limitations: no limitations <Ariela Melton - Last Filed: 12/01/18 03:20> - General Exam Comments Initial Comments: General: The patient is awake and alert, in no distress, and does not appear acutely ill. Eye: +3 mm pupils are equal, round and reactive to light, extra-ocular movements are intact. No nystagmus. There is normal conjunctiva bilaterally. No signs of icterus. Ears, nose, mouth and throat: There are moist mucous membranes and no oral lesions. Neck: The neck is supple, there is no tenderness or JVD. Cardiovascular: There is a regular rate and rhythm. No murmur, rub or gallop is appreciated. Respiratory: Lungs are clear to auscultation, respirations are non-labored, br eath sounds are equal. No wheezes, stridor, rales, or rhonchi. Gastrointestinal: Soft, non-distended, non-tender abdomen without masses or organomegaly noted. There is no rebound or guarding present. No CVA tenderness. Bowel sounds are unremarkable. Musculoskeletal: Normal ROM, no tenderness. Strength 5/5. Sensation intact. Radial and DP pulses equal bilaterally 2+. Neurological: A&O x 3. CN II-XII intact, There are no obvious motor or sensory deficits. Coordination appears grossly intact. Speech is normal. Skin: Skin is warm and dry and no rashes or lesions are noted. Negative Homans bilaterally. No lower extremity swelling or edema. No swelling of the upper extremities Psychiatric: Cooperative, appropriate mood & affect, normal judgment. (Ariela Melton) Course Vital Signs 11/30/18 11/30/18 12/01/18 22:21 22:25 01:52 Temperature 97.9 F Pulse Rate 87 74 Respiratory 20 18 19 Rate Blood Pressure 152/77 122/66 O2 Sat by Pulse 98 96 Oximetry 12/01/18 03:21 Temperature Pulse Rate Respiratory 18 Rate Blood Pressure O2 Sat by Pulse Oximetry Medical Decision Making - Lab Data Result diagrams: 12/01/18 00:51 12/01/18 00:51 <Ariela Melton - Last Filed: 12/01/18 03:20> - Lab Data Result diagrams: 12/01/18 00:51 12/01/18 00:51 <Michelle Lyon - Last Filed: 12/01/18 07:47> - Medical Decision Making 68-year-old female sent in by [facility] for elevated d-dimer. EKG no acute findings, compared with previous no change. Troponin (-). D-dimer the emergency department normal. Patient is no tachycardia or hypoxia. Patient appears well no overt signs of shortness of breath. Patient's symptoms ongoing for the past month. Patient does have a strong family history of pulmonary embolisms and blood clots. Patient denies any known clotting disorders. Patient is not on anticoagulation therapy. Patient recently had a cath with no acute findings. Patient did not have stents placed. CT angiography revealed no evidence of pulmonary embolus. At this time I feel patient is stable for discharge with continued outpatient evaluation. Patient is agreeable to plan discharge. I discussed case with my attending Dr. Lyon prior to discharge, agreeable with plan. (Ariela Melton) I was available for consultation in the emergency department. The history and physical exam were done by the midlevel provider. I was consulted for this patient's care. I reviewed the case with the midlevel provider and based on their presentation of the patient, I agree with the assessment, medical decision making and plan of care as documented. Chart was dictated using [employer] dictation software. Attempts were made to correct any dictation errors however some typographical errors may persist. (Michelle Lyon) - Lab Data Lab Results 12/01/18 12/01/18 12/01/18 Range/Units 00:51 00:51 00:51 WBC 7.7 (3.8-10.6) k/uL RBC 4.28 (3.80-5.40) m/uL Hgb 12.9 (11.4-16.0) gm/dL Hct 38.2 (34.0-46.0) % MCV 89.2 (80.0-100.0) fL MCH 30.2 (25.0-35.0) pg MCHC 33.8 (31.0-37.0) g/dL RDW 13.4 (11.5-15.5) % Plt Count 356 (150-450) k/uL Neutrophils % 60 % Lymphocytes % 28 % Monocytes % 7 % Eosinophils % 2 % Basophils % 1 % Neutrophils # 4.7 (1.3-7.7) k/uL Lymphocytes # 2.2 (1.0-4.8) k/uL Monocytes # 0.6 (0-1.0) k/uL Eosinophils # 0.1 (0-0.7) k/uL Basophils # 0.0 (0-0.2) k/uL PT 9.4 (9.0-12.0) sec INR 0.9 (<1.2) APTT 24.3 (22.0-30.0) sec D-Dimer 0.50 (<0.60) mg/L FEU Sodium 143 (137-145) mmol/L Potassium 3.8 (3.5-5.1) mmol/L Chloride 105 (98-107) mmol/L Carbon Dioxide 26 (22-30) mmol/L Anion Gap 12 mmol/L BUN 16 (7-17) mg/dL Creatinine 0.67 (0.52-1.04) mg/dL Est GFR (CKD-EPI)AfAm >90 (>60 ml/min/1.73 sqM) Est GFR (CKD-EPI)NonAf >90 (>60 ml/min/1.73 sqM) Glucose 101 H (74-99) mg/dL Calcium 10.0 (8.4-10.2) mg/dL Total Bilirubin 0.3 (0.2-1.3) mg/dL AST 25 (14-36) U/L ALT 25 (9-52) U/L Alkaline Phosphatase 95 (38-126) U/L Troponin I (0.000-0.034) ng/mL NT-Pro-B Natriuret Pep pg/mL Total Protein 7.1 (6.3-8.2) g/dL Albumin 4.6 (3.5-5.0) g/dL 12/01/18 12/01/18 Range/Units 00:51 00:51 WBC (3.8-10.6) k/uL RBC (3.80-5.40) m/uL Hgb (11.4-16.0) gm/dL Hct (34.0-46.0) % MCV (80.0-100.0) fL MCH (25.0-35.0) pg MCHC (31.0-37.0) g/dL RDW (11.5-15.5) % Plt Count (150-450) k/uL Neutrophils % % Lymphocytes % % Monocytes % % Eosinophils % % Basophils % % Neutrophils # (1.3-7.7) k/uL Lymphocytes # (1.0-4.8) k/uL Monocytes # (0-1.0) k/uL Eosinophils # (0-0.7) k/uL Basophils # (0-0.2) k/uL PT (9.0-12.0) sec INR (<1.2) APTT (22.0-30.0) sec D-Dimer (<0.60) mg/L FEU Sodium (137-145) mmol/L Potassium (3.5-5.1) mmol/L Chloride (98-107) mmol/L Carbon Dioxide (22-30) mmol/L Anion Gap mmol/L BUN (7-17) mg/dL Creatinine (0.52-1.04) mg/dL Est GFR (CKD-EPI)AfAm (>60 ml/min/1.73 sqM) Est GFR (CKD-EPI)NonAf (>60 ml/min/1.73 sqM) Glucose (74-99) mg/dL Calcium (8.4-10.2) mg/dL Total Bilirubin (0.2-1.3) mg/dL AST (14-36) U/L ALT (9-52) U/L Alkaline Phosphatase (38-126) U/L Troponin I <0.012 (0.000-0.034) ng/mL NT-Pro-B Natriuret Pep 161 pg/mL Total Protein (6.3-8.2) g/dL Albumin (3.5-5.0) g/dL - EKG Data EKG Comments: Ventricular rate 73 bpm, ME interval 166 ms, QR administration 70 ms, QT/QTC 422/464 ms. Normal sinus the nonspecific T-wave abnormality. No ST elevation or depression. EKG was compared to that of 11/19/2018. No acute changes. EKG was interpreted by myself. (Ariela Melton) Disposition Is patient prescribed a controlled substance at d/c from ED?: No Time of Disposition: 03:14 <Ariela Melton - Last Filed: 12/01/18 03:20> <Michelle Lyon - Last Filed: 12/01/18 07:47> Clinical Impression: Shortness of breath Disposition: HOME SELF-CARE Condition: Good Instructions (If sedation given, give patient instructions): Shortness of Breath (ED) Additional Instructions: Please use medication as discussed. Please follow-up with family doctor in the next 2 days. Please return to emergency room if the symptoms increase or worsen or for any other concerns. Referrals: Noris Pink MD [Primary Care Provider] - 1-2 days
--- NOTE | 2018-12-01 00:35 | XR ---
EXAM: XR Chest, 2 Views CLINICAL HISTORY: ITS.REASON XR Reason: difficulty breathing TECHNIQUE: Frontal and lateral views of the chest. COMPARISON: No relevant prior studies available. FINDINGS: Lungs: Unremarkable. No consolidation. Pleural space: Unremarkable. No pneumothorax. Heart: No suspicious enlargement. Mediastinum: Unremarkable. Bones/joints: No acute fracture. IMPRESSION: No acute findings.
[2018-12-01 01:09] LABS: Basophils % (A) 1 %; Eosinophils # (A) 0.1 k/uL (0-0.7); Eosinophils % (A) 2 %; HCT 38.2 % (34.0-46.0); HGB 12.9 gm/dL (11.4-16.0); Lymphocytes # (A) 2.2 k/uL (1.0-4.8); Lymphocytes % (A) 28 %; MCH 30.2 pg (25.0-35.0); MCHC 33.8 g/dL (31.0-37.0); MCV 89.2 fL (80.0-100.0); Mean Platelet Volume 7.3; Monocytes # (A) 0.6 k/uL (0-1.0); Monocytes % (A) 7 %; Neutrophils # (A) 4.7 k/uL (1.3-7.7); Neutrophils % (A) 60 %; Platelet Count 356 k/uL (150-450); RBC 4.28 m/uL (3.80-5.40); RDW 13.4 % (11.5-15.5); WBC 7.7 k/uL (3.8-10.6)
[2018-12-01 01:17] LABS: ALT 25 U/L (9-52); AST 25 U/L (14-36); Albumin 4.6 g/dL (3.5-5.0); Alkaline Phosphatase 95 U/L (38-126); Anion Gap 12 mmol/L; Blood Urea Nitrogen 16 mg/dL (7-17); Carbon Dioxide 26 mmol/L (22-30); Chloride 105 mmol/L (98-107); Glucose 101 mg/dL (74-99); Potassium 3.8 mmol/L (3.5-5.1); Sodium 143 mmol/L (137-145); Total Bilirubin 0.3 mg/dL (0.2-1.3); Total Protein 7.1 g/dL (6.3-8.2)
[2018-12-01 01:22] LABS: D-Dimer 0.5 mg/L FEU (<0.60); INR 0.9 (<1.2); Prothrombin Time 9.4 sec (9.0-12.0)
[2018-12-01 01:23] LABS: Partial Thromboplastin Time 24.3 sec (22.0-30.0)
[2018-12-01 01:54] VITALS: BP 122/66; PULSE 74
--- NOTE | 2018-12-01 02:51 | CT ---
EXAM: CT Angiography Chest With Intravenous Contrast CLINICAL HISTORY: Reason: SOB, strong family hx PE/DVT, Dimer elevated outpt TECHNIQUE: Axial computed tomographic angiography images of the chest with intravenous contrast using pulmonary embolism protocol. CTDI is 14.7 mGy and DLP is 313.3 mGy-cm. This CT exam was performed using one or more of the following dose reduction techniques: automated exposure control, adjustment of the mA and/or kV according to patient size, and/or use of iterative reconstruction technique. MIP reconstructed images were created and reviewed. COMPARISON: Chest x-ray 12/01/2018 FINDINGS: Pulmonary arteries: No evidence of acute pulmonary embolism. Aorta: No thoracic aortic aneurysm or evidence of dissection. Lungs: Bilateral dependent atelectasis. Inferior lingular subsegmental atelectasis or scarring. No evidence of acute pulmonary parenchymal disease or consolidation. Pleural space: No evidence of pleural effusion or pneumothorax. Heart: Heart size upper limits of normal. No significant pericardial effusion. Bones/joints: Mild-moderate multilevel degenerative changes throughout the thoracic spine. Lymph nodes: No evidence of lymphadenopathy. IMPRESSION: No evidence of acute pulmonary embolism. No thoracic aortic aneurysm or evidence of dissection.
[2018-12-01 03:41] VITALS: RESP 18
== END 2018-12-01 03:27 | disposition home or self-care (01) ==
LOC: EC 22:04
DX: R06.02 Shortness of breath (principal); R94.31 Abnormal electrocardiogram [ECG] [EKG]; R53.83 Other fatigue; M54.9 Dorsalgia, unspecified; E78.5 Hyperlipidemia, unspecified; I10 Essential (primary) hypertension; F41.9 Anxiety disorder, unspecified; Z87.891 Personal history of nicotine dependence; Z88.0 Allergy status to penicillin; Z79.899 Other long term (current) drug therapy; Z95.5 Presence of coronary angioplasty implant and graft; Z96.649 Presence of unspecified artificial hip joint; Z96.659 Presence of unspecified artificial knee joint; Z83.6 Family history of other diseases of the respiratory system; Z82.49 Family history of ischemic heart disease and other diseases of the circulatory system
CPT/HCPCS: 36415; 71046; 71275; 80053; 83880; 84484; 85025; 85379; 85610; 85730; 87040; 93005; 96360; 99285

== ENCOUNTER → 2019-02-10 | Outpatient (CLI) | payer MEDICARE | END | disposition home or self-care (01) | LOC: LABWHC1 11:09 | PROVIDERS: ATTEND Internal Medicine Critical Care Medicine | DX: J45.909 Unspecified asthma, uncomplicated (principal) | CPT/HCPCS: 36415; 82784; 85008 ==

== ENCOUNTER → 2019-02-18 | Outpatient (CLI) | payer MEDICARE | END | disposition home or self-care (01) | LOC: LABWHC1 09:42 | PROVIDERS: ATTEND Internal Medicine Critical Care Medicine | DX: J45.909 Unspecified asthma, uncomplicated (principal) | CPT/HCPCS: 36415; 82785 ==

== ENCOUNTER → 2019-03-04 | Outpatient (CLI) | payer MEDICARE ==
[2019-03-04 09:10] LABS: HCT 41.5 % (34.0-46.0); MCH 30.3 pg (25.0-35.0); MCHC 33.8 g/dL (31.0-37.0); MCV 89.5 fL (80.0-100.0); Mean Platelet Volume 7.4; Platelet Count 390 k/uL (150-450); RBC 4.63 m/uL (3.80-5.40); RDW 14.1 % (11.5-15.5); WBC 9.7 k/uL (3.8-10.6)
[2019-03-04 17:09] LABS: T4, Free (Free Thyroxine) 1.5 ng/dL (0.80-1.80)
== END | disposition home or self-care (01) ==
LOC: LABWHC1 07:50
PROVIDERS: ATTEND Internal Medicine
DX: R53.83 Other fatigue (principal)
CPT/HCPCS: 36415; 82533; 84439; 84443; 85027

== ENCOUNTER 2019-10-09 16:05 | Emergency (ER) | payer MEDICARE ==
--- NOTE | 2019-10-09 16:29 | ED ---
General Adult HPI - General Chief complaint: Shortness of Breath Stated complaint: SOB, cough Time Seen by Provider: 10/09/19 16:27 Source: patient Mode of arrival: ambulatory Limitations: no limitations - History of Present Illness Initial comments: Patient presents the ED complaining of having a cough, congestion and dyspnea for the past week or so. Patient also states that she had a low-grade fever about a week ago, but not since then. Patient denies having any diarrhea to me, in contrast to what is documented in the triage note. Patient states that her has had similar symptoms as well, and he is currently being evaluated in the ED as well. Patient denies known Covid19 exposure or recent travel abroad. Patient denies having any pain, headache, neck pain or stiffness, sore throat, chest pain, hemoptysis, palpitations, dizziness, abdominal pain, nausea/vomiting/diarrhea, dysuria or urinary symptoms, decreased urine output, leg or calf swelling or pain, or any other symptoms or complaints. - Related Data Home Medications Medication Instructions Recorded Confirmed Folic Acid 1 mg PO DAILY 04/12/17 11/30/18 Omeprazole 40 mg PO DAILY PRN 04/12/17 11/30/18 Simvastatin [Zocor] 20 mg PO HS 04/12/17 11/30/18 buPROPion HCL [Wellbutrin SR] 150 mg PO BID 04/12/17 11/30/18 Cholecalciferol [Vitamin D3 (25 1,000 unit PO DAILY 10/26/18 11/30/18 Mcg = 1000 Iu)] Cyanocobalamin (Vitamin B-12) 1,000 mcg PO DAILY 10/26/18 11/30/18 [Vitamin B-12] Vit C/E/Zn/Coppr/Lutein/Zeaxan 1 cap PO DAILY 10/26/18 11/30/18 [Preservision Areds 2 Softgel] amLODIPine [Norvasc] 10 mg PO DAILY 11/30/18 11/30/18 Allergies Allergy/AdvReac Type Severity Reaction Status Date / Time Penicillins Allergy Rash/Hives Verified 10/09/19 16:24 Review of Systems ROS Statement: Those systems with pertinent positive or pertinent negative responses have been documented in the HPI. ROS Other: All systems not noted in ROS Statement are negative. Past Medical History Past Medical History: Asthma, Hyperlipidemia, Hypertension Additional Past Medical History / Comment(s): h. pylori History of Any Multi-Drug Resistant Organisms: None Reported Past Surgical History: Joint Replacement, Tonsillectomy Additional Past Surgical History / Comment(s): knee hip replacement Past Anesthesia/Blood Transfusion Reactions: Motion Sickness, Postoperative Nausea & Vomiting (PONV) Past Psychological History: No Psychological Hx Reported, Anxiety Smoking Status: Former smoker Past Alcohol Use History: None Reported Past Drug Use History: None Reported - Past Family History Father Family Medical History: Cancer Additional Family Medical History / Comment(s): bladder cancer Mother Family Medical History: Cancer Additional Family Medical History / Comment(s): Stomach cancer Family Family Medical History: Cancer Additional Family Medical History / Comment(s): No history of premature CAD General Exam Limitations: no limitations General appearance: alert, in no apparent distress Head exam: Present: atraumatic, normocephalic Eye exam: Present: normal appearance, EOMI ENT exam: Present: normal oropharynx, mucous membranes moist Neck exam: Present: other (Trachea is in midline). Absent: tenderness, meningismus Respiratory exam: Present: normal lung sounds bilaterally. Absent: respiratory distress, wheezes, rales, rhonchi, stridor Cardiovascular Exam: Present: regular rate, normal rhythm, normal heart sounds, other (Normal radial pulses bilaterally) GI/Abdominal exam: Present: soft. Absent: distended, tenderness, guarding Extremities exam: Present: other (Negative Homans sign bilaterally). Absent: tenderness, pedal edema, calf tenderness Neurological exam: Present: alert, oriented X3. Absent: motor sensory deficit Psychiatric exam: Present: normal affect, normal mood Skin exam: Present: warm, dry, intact, normal color Course Vital Signs 10/09/19 16:21 Temperature 98.6 F Pulse Rate 96 Respiratory 20 Rate Blood Pressure 135/76 O2 Sat by Pulse 97 Oximetry - Reevaluation(s) Reevaluation #1: 10/09/19 18:00 Patient denies development of any new symptoms while in the ED. Patient remains alert and breathing comfortably with a normal room air oxygen saturation. Patient is aware of her test results, and she feels comfortable being discharged home at this time. She is aware of the possibility of Covid-19, and she was counseled about social distancing and symptoms to watch for. Medical Decision Making - Medical Decision Making Patient is noted to have a mildly low potassium level on laboratory evaluation, and she was given a dose of oral potassium for repletion in the emergency room. Patient's labs are otherwise fairly unremarkable. Patient's chest x-ray is also unremarkable. I suspect that the patient's symptoms are likely from a viral illness. I have explained to her that Covid19 is a possibility. Patient was counseled about viral infections and URIs, as well as hypokalemia. She was clearly explained return and follow-up instructions. She was instructed to return to the ED should she develop new or worsening symptoms. She was also instructed to follow up closely with her primary care provider. - Lab Data Result diagrams: 10/09/19 16:55 10/09/19 16:55 Lab Results 10/09/19 10/09/19 Range/Units 16:55 16:55 WBC 5.0 (3.8-10.6) k/uL RBC 4.93 (3.80-5.40) m/uL Hgb 14.9 (11.4-16.0) gm/dL Hct 42.5 (34.0-46.0) % MCV 86.3 (80.0-100.0) fL MCH 30.3 (25.0-35.0) pg MCHC 35.1 (31.0-37.0) g/dL RDW 12.4 (11.5-15.5) % Plt Count 280 (150-450) k/uL Neutrophils % 70 % Lymphocytes % 19 % Monocytes % 8 % Eosinophils % 0 % Basophils % 1 % Neutrophils # 3.5 (1.3-7.7) k/uL Lymphocytes # 1.0 (1.0-4.8) k/uL Monocytes # 0.4 (0-1.0) k/uL Eosinophils # 0.0 (0-0.7) k/uL Basophils # 0.0 (0-0.2) k/uL Sodium 130 L (137-145) mmol/L Potassium 3.1 L (3.5-5.1) mmol/L Chloride 91 L (98-107) mmol/L Carbon Dioxide 28 (22-30) mmol/L Anion Gap 11 mmol/L BUN 12 (7-17) mg/dL Creatinine 0.59 (0.52-1.04) mg/dL Est GFR (CKD-EPI)AfAm >90 (>60 ml/min/1.73 sqM) Est GFR (CKD-EPI)NonAf >90 (>60 ml/min/1.73 sqM) Glucose 108 H (74-99) mg/dL Calcium 9.1 (8.4-10.2) mg/dL Total Bilirubin 0.6 (0.2-1.3) mg/dL AST 42 H (14-36) U/L ALT 35 H (4-34) U/L Alkaline Phosphatase 79 (38-126) U/L Total Protein 6.9 (6.3-8.2) g/dL Albumin 4.4 (3.5-5.0) g/dL - Radiology Data Radiology results: image reviewed (Chest x-ray is negative) Disposition Clinical Impression: Upper respiratory infection, Hypokalemia Disposition: HOME SELF-CARE Condition: Stable Instructions (If sedation given, give patient instructions): Hypokalemia (ED), Upper Respiratory Infection (ED) Additional Instructions: Return to the ER immediately should you develop increased shortness of breath, chest pain, persistent vomiting, feeling dizzy or faint, a high fever, or new or worsening symptoms. Follow up closely with your primary care provider. Is patient prescribed a controlled substance at d/c from ED?: No Referrals: Noris Pink MD [Primary Care Provider] - 1-2 days Time of Disposition: 18:02
[2019-10-09] MEDS ORDERED: SODIUM CHLORIDE 0.9% 500 ML 500 ML IV STA (16:44)
[2019-10-09 17:17] LABS: ALT 35 U/L (4-34); AST 42 U/L (14-36); African American GFR (CKD) >90 (>60 ml/min/1.73 sqM); Albumin 4.4 g/dL (3.5-5.0); Alkaline Phosphatase 79 U/L (38-126); Anion Gap 11 mmol/L; Blood Urea Nitrogen 12 mg/dL (7-17); Calcium 9.1 mg/dL (8.4-10.2); Carbon Dioxide 28 mmol/L (22-30); Chloride 91 mmol/L (98-107); Glucose 108 mg/dL (74-99); Non-African American GFR(CKD) >90 (>60 ml/min/1.73 sqM); Potassium 3.1 mmol/L (3.5-5.1); Sodium 130 mmol/L (137-145); Total Bilirubin 0.6 mg/dL (0.2-1.3); Total Protein 6.9 g/dL (6.3-8.2)
[2019-10-09 17:27] LABS: Basophils % (A) 1 %; Eosinophils % (A) 0 %; HCT 42.5 % (34.0-46.0); HGB 14.9 gm/dL (11.4-16.0); Lymphocytes % (A) 19 %; MCH 30.3 pg (25.0-35.0); MCHC 35.1 g/dL (31.0-37.0); MCV 86.3 fL (80.0-100.0); Mean Platelet Volume 7.5; Monocytes # (A) 0.4 k/uL (0-1.0); Monocytes % (A) 8 %; Neutrophils # (A) 3.5 k/uL (1.3-7.7); Neutrophils % (A) 70 %; Platelet Count 280 k/uL (150-450); RBC 4.93 m/uL (3.80-5.40); RDW 12.4 % (11.5-15.5)
--- NOTE | 2019-10-09 17:41 | XR ---
EXAMINATION TYPE: XR chest 2V DATE OF EXAM: 10/09/2019 COMPARISON: 12/01/2018 HISTORY: Cough, shortness of breath, and diarrhea TECHNIQUE: Frontal and lateral views of the chest are obtained. FINDINGS: There is no focal air space opacity, pleural effusion, or pneumothorax seen. The cardiac silhouette size is upper limits of normal size. The osseous structures are intact. Mild multilevel degenerative change of the spine. IMPRESSION: No acute cardiopulmonary process.
[2019-10-09] MEDS ORDERED: POTASSIUM CHLORIDE ER 20 MEQ TAB.ER PO STA (17:49)
[2019-10-09 18:17] VITALS: BP 128/78; PULSE 65; RESP 18; TEMP 98.8
== END 2019-10-09 18:17 | disposition home or self-care (01) ==
LOC: EC 16:05
DX: J06.9 Acute upper respiratory infection, unspecified (principal); E87.6 Hypokalemia; E78.5 Hyperlipidemia, unspecified; I10 Essential (primary) hypertension; F41.9 Anxiety disorder, unspecified; Z79.899 Other long term (current) drug therapy; Z87.891 Personal history of nicotine dependence; Z88.0 Allergy status to penicillin; Z96.659 Presence of unspecified artificial knee joint; Z96.649 Presence of unspecified artificial hip joint
CPT/HCPCS: 36415; 71046; 80053; 85025; 96360; 99285

== ENCOUNTER 2019-10-10 22:27 | Observation (INO) | payer MEDICARE ==
[2019-10-10] MEDS ORDERED: SODIUM CHLORIDE 0.9% 1,000 ML IV STA (23:07)
--- NOTE | 2019-10-10 23:12 | ED ---
General Adult HPI - General Chief complaint: Shortness of Breath Stated complaint: Revisit SOB Time Seen by Provider: 10/10/19 22:42 Source: patient, RN notes reviewed, old records reviewed Mode of arrival: ambulatory Limitations: no limitations - History of Present Illness Initial comments: 69-year-old female patient past history significant for asthma hypertension presents to the for chief complaint of one-week of cough, diarrhea, shortness of breath. Patient was seen yesterday and states that her symptoms are not improving. She denies any chest pain. Patient also reports midthoracic back pain which has been ongoing for months and is unchanged. She denies any fevers. She denies any recent travel or positive coronavirus contacts. Systemic: Pt denies fatigue, fever/chills, rash. Pt denies weakness, night sweats, weight loss. Neuro: Pt denies headache, visual disturbances, syncope or pre-syncope. HEENT: Pt denies ocular discharge or irritation, otalgia, rhinorrhea, pharyngitis or notable lymphadenopathy. Cardiopulmonary: Pt denies chest pain, heart palpitations, dyspnea on exertion. Abdominal/GI: Pt denies abdominal pain, n/v/d. : Pt denies dysuria, burning w/ urination, frequency/urgency. Denies new onset urinary or bowel incontinence. MSK: Pt denies myalgia, loss of strength or function in extremities. Neuro: Pt denies new onset weakness, paresthesias. - Related Data Home Medications Medication Instructions Recorded Confirmed Folic Acid 1 mg PO DAILY 04/12/17 11/30/18 Omeprazole 40 mg PO DAILY PRN 04/12/17 11/30/18 Simvastatin [Zocor] 20 mg PO HS 04/12/17 11/30/18 buPROPion HCL [Wellbutrin SR] 150 mg PO BID 04/12/17 11/30/18 Cholecalciferol [Vitamin D3 (25 1,000 unit PO DAILY 10/26/18 11/30/18 Mcg = 1000 Iu)] Cyanocobalamin (Vitamin B-12) 1,000 mcg PO DAILY 10/26/18 11/30/18 [Vitamin B-12] Vit C/E/Zn/Coppr/Lutein/Zeaxan 1 cap PO DAILY 10/26/18 11/30/18 [Preservision Areds 2 Softgel] amLODIPine [Norvasc] 10 mg PO DAILY 11/30/18 11/30/18 Allergies Allergy/AdvReac Type Severity Reaction Status Date / Time Penicillins Allergy Rash/Hives Verified 10/09/19 16:24 Review of Systems ROS Statement: Those systems with pertinent positive or pertinent negative responses have been documented in the HPI. ROS Other: All systems not noted in ROS Statement are negative. Past Medical History Past Medical History: Asthma, Hyperlipidemia, Hypertension Additional Past Medical History / Comment(s): h. pylori History of Any Multi-Drug Resistant Organisms: None Reported Past Surgical History: Joint Replacement, Tonsillectomy Additional Past Surgical History / Comment(s): knee hip replacement Past Anesthesia/Blood Transfusion Reactions: Motion Sickness, Postoperative Naus ea & Vomiting (PONV) Past Psychological History: No Psychological Hx Reported, Anxiety Smoking Status: Former smoker Past Alcohol Use History: None Reported Past Drug Use History: None Reported - Past Family History Father Family Medical History: Cancer Additional Family Medical History / Comment(s): bladder cancer Mother Family Medical History: Cancer Additional Family Medical History / Comment(s): Stomach cancer Family Family Medical History: Cancer Additional Family Medical History / Comment(s): No history of premature CAD General Exam - General Exam Comments Initial Comments: Constitutional: NAD, AOX3, Pt has pleasant affect. HEENT: NC/AT, trachea midline, neck supple, no lymphadenopathy. Posterior pharynx non erythematous, without exudates. External ears appear normal, without discharge. Mucous membranes moist. Eyes PERRLA, EOM intact. There is no scleral icterus. No pallor noted. Cardiopulmonary: RRR, no murmurs, rubs or gallops, no JVD noted. Lungs CTAB in anterior and posterior lo. No peripheral edema. Abdominal exam: Abdomen soft and non-distended. Abdomen non-tender to palpation in all 4 quadrants. Bowel sounds active in LLQ. No hepatosplenomegaly. No ecchymosis Neuro: CN II-XII grossly intact. No nuchal rigidity. No raccon eyes, no cota sign, no hemotympanum. No cervical spinal tenderness. MSK: No posterior calf tenderness bilaterally, homans sign negative bilaterally. Posterior tibialis and radial pulse +2 bilaterally. Sensation intact in upper and lower extremities. Full active ROM in upper and lower extremities, 5/5 stregnth. Limitations: no limitations Course Vital Signs 03/30/20 03/31/20 22:30 00:16 Temperature 98.5 F Pulse Rate 102 H Respiratory 20 18 Rate Blood Pressure 144/85 O2 Sat by Pulse 97 Oximetry Medical Decision Making - Medical Decision Making 69-year-old female patient past history significant for asthma hypertension presents to the for chief complaint of one-week of cough, diarrhea, shortness of breath. Patient was seen yesterday and states that her symptoms are not improving. She denies any chest pain. Patient also reports midthoracic back pain which has been ongoing for months and is unchanged. She denies any fevers. She denies any recent travel or positive coronavirus contacts. Pt VSS, afebrile. Physical exam displayed no acute pathology. Laboratory investigations revealed mild transaminitis, hypokalemia, negative troponin. EKG did displayed new lateral inversions. Chest x-ray negative for acute process. Patient has similar symptoms. Patient will be admitted tested for coronavirus placed on telemetry, troponins will be trended. Case discussed with Dr. Lyon. - Lab Data Result diagrams: 10/11/19 00:08 10/11/19 00:08 Lab Results 10/11/19 10/11/19 10/11/19 Range/Units 00:08 00:08 00:08 WBC 5.2 (3.8-10.6) k/uL RBC 4.91 (3.80-5.40) m/uL Hgb 14.9 (11.4-16.0) gm/dL Hct 42.6 (34.0-46.0) % MCV 86.7 (80.0-100.0) fL MCH 30.4 (25.0-35.0) pg MCHC 35.0 (31.0-37.0) g/dL RDW 12.4 (11.5-15.5) % Plt Count 268 (150-450) k/uL Neutrophils % 61 % Lymphocytes % 28 % Monocytes % 8 % Eosinophils % 1 % Basophils % 0 % Neutrophils # 3.2 (1.3-7.7) k/uL Lymphocytes # 1.4 (1.0-4.8) k/uL Monocytes # 0.4 (0-1.0) k/uL Eosinophils # 0.0 (0-0.7) k/uL Basophils # 0.0 (0-0.2) k/uL Sodium 131 L (137-145) mmol/L Potassium 3.2 L (3.5-5.1) mmol/L Chloride 92 L (98-107) mmol/L Carbon Dioxide 27 (22-30) mmol/L Anion Gap 12 mmol/L BUN 12 (7-17) mg/dL Creatinine 0.65 (0.52-1.04) mg/dL Est GFR (CKD-EPI)AfAm >90 (>60 ml/min/1.73 sqM) Est GFR (CKD-EPI)NonAf >90 (>60 ml/min/1.73 sqM) Glucose 112 H (74-99) mg/dL Plasma Lactic Acid Javier 1.3 (0.7-2.0) mmol/L Calcium 9.4 (8.4-10.2) mg/dL Magnesium 1.8 (1.6-2.3) mg/dL Total Bilirubin 0.5 (0.2-1.3) mg/dL AST 38 H (14-36) U/L ALT 35 H (4-34) U/L Alkaline Phosphatase 92 (38-126) U/L Troponin I (0.000-0.034) ng/mL Total Protein 7.2 (6.3-8.2) g/dL Albumin 4.6 (3.5-5.0) g/dL Urine Color Urine Appearance (Clear) Urine pH (5.0-8.0) Ur Specific Dass[place] (1.001-1.035) Urine Protein (Negative) Urine Glucose (UA) (Negative) Urine Ketones (Negative) Urine Blood (Negative) Urine Nitrite (Negative) Urine Bilirubin (Negative) Urine Urobilinogen (<2.0) mg/dL Ur Leukocyte Esterase (Negative) Urine RBC (0-5) /hpf Urine WBC (0-5) /hpf Ur Squamous Epith Cells (0-4) /hpf Hyaline Casts (0-2) /lpf Urine Mucus (None) /hpf 10/11/19 10/11/19 Range/Units 00:08 00:48 WBC (3.8-10.6) k/uL RBC (3.80-5.40) m/uL Hgb (11.4-16.0) gm/dL Hct (34.0-46.0) % MCV (80.0-100.0) fL MCH (25.0-35.0) pg MCHC (31.0-37.0) g/dL RDW (11.5-15.5) % Plt Count (150-450) k/uL Neutrophils % % Lymphocytes % % Monocytes % % Eosinophils % % Basophils % % Neutrophils # (1.3-7.7) k/uL Lymphocytes # (1.0-4.8) k/uL Monocytes # (0-1.0) k/uL Eosinophils # (0-0.7) k/uL Basophils # (0-0.2) k/uL Sodium (137-145) mmol/L Potassium (3.5-5.1) mmol/L Chloride (98-107) mmol/L Carbon Dioxide (22-30) mmol/L Anion Gap mmol/L BUN (7-17) mg/dL Creatinine (0.52-1.04) mg/dL Est GFR (CKD-EPI)AfAm (>60 ml/min/1.73 sqM) Est GFR (CKD-EPI)NonAf (>60 ml/min/1.73 sqM) Glucose (74-99) mg/dL Plasma Lactic Acid Javier (0.7-2.0) mmol/L Calcium (8.4-10.2) mg/dL Magnesium (1.6-2.3) mg/dL Total Bilirubin (0.2-1.3) mg/dL AST (14-36) U/L ALT (4-34) U/L Alkaline Phosphatase (38-126) U/L Troponin I <0.012 (0.000-0.034) ng/mL Total Protein (6.3-8.2) g/dL Albumin (3.5-5.0) g/dL Urine Color Yellow Urine Appearance Cloudy H (Clear) Urine pH 7.5 (5.0-8.0) Ur Specific Dass[place] 1.012 (1.001-1.035) Urine Protein Trace H (Negative) Urine Glucose (UA) Negative (Negative) Urine Ketones 1+ H (Negative) Urine Blood Negative (Negative) Urine Nitrite Negative (Negative) Urine Bilirubin Negative (Negative) Urine Urobilinogen <2.0 (<2.0) mg/dL Ur Leukocyte Esterase Negative (Negative) Urine RBC 2 (0-5) /hpf Urine WBC 2 (0-5) /hpf Ur Squamous Epith Cells 2 (0-4) /hpf Hyaline Casts 1 (0-2) /lpf Urine Mucus Occasional H (None) /hpf - EKG Data -: EKG Interpreted by Me (and Dr. Lyon) EKG Comments: Ventricular rate 91, NM interval 150, QRS 64, QT/QTC 328/403. Normal sinus rhythm, new t wave inversions in V4 V5 and V6. Disposition Clinical Impression: Suspected COVID-19 virus infection, Acute electrocardiogram changes, Hypokalemia Disposition: ADMITTED IP TO THIS HOSP Condition: Serious Is patient prescribed a controlled substance at d/c from ED?: No Referrals: Noris Pink MD [Primary Care Provider] - 1-2 days
--- NOTE | 2019-10-10 23:50 | XR ---
EXAMINATION TYPE: XR chest 1V DATE OF EXAM: 10/10/2019 COMPARISON: Yesterday HISTORY: Difficulty breathing TECHNIQUE: FINDINGS: Heart is normal. Lungs are clear. Diaphragm is normal. Bony thorax is intact. There are are no hilar masses. IMPRESSION: No active cardiac pulmonary disease. Normal heart. No change.
[2019-10-11 00:15] LABS: Basophils % (A) 0 %; Eosinophils % (A) 1 %; HCT 42.6 % (34.0-46.0); HGB 14.9 gm/dL (11.4-16.0); Lymphocytes # (A) 1.4 k/uL (1.0-4.8); Lymphocytes % (A) 28 %; MCH 30.4 pg (25.0-35.0); MCV 86.7 fL (80.0-100.0); Mean Platelet Volume 7.2; Monocytes # (A) 0.4 k/uL (0-1.0); Monocytes % (A) 8 %; Neutrophils # (A) 3.2 k/uL (1.3-7.7); Neutrophils % (A) 61 %; Platelet Count 268 k/uL (150-450); RBC 4.91 m/uL (3.80-5.40); RDW 12.4 % (11.5-15.5); WBC 5.2 k/uL (3.8-10.6)
[2019-10-11] MEDS ORDERED: ASPIRIN 81 MG PO STA (00:20)
[2019-10-11] MEDS ORDERED: MORPHINE SULFATE 4 MG/ML SYRINGE IVP STA (00:20)
[2019-10-11 00:26] LABS: ALT 35 U/L (4-34); AST 38 U/L (14-36); African American GFR (CKD) >90 (>60 ml/min/1.73 sqM); Albumin 4.6 g/dL (3.5-5.0); Alkaline Phosphatase 92 U/L (38-126); Anion Gap 12 mmol/L; Blood Urea Nitrogen 12 mg/dL (7-17); Calcium 9.4 mg/dL (8.4-10.2); Carbon Dioxide 27 mmol/L (22-30); Chloride 92 mmol/L (98-107); Glucose 112 mg/dL (74-99); Magnesium 1.8 mg/dL (1.6-2.3); Non-African American GFR(CKD) >90 (>60 ml/min/1.73 sqM); Potassium 3.2 mmol/L (3.5-5.1); Sodium 131 mmol/L (137-145); Total Bilirubin 0.5 mg/dL (0.2-1.3); Total Protein 7.2 g/dL (6.3-8.2)
[2019-10-11] MEDS ORDERED: POTASSIUM CHLORIDE ER 20 MEQ TAB.ER PO STA ×2 (00:49→08:01)
[2019-10-11 00:58] LABS: Appearance,Urine Cloudy (Clear); Bilirubin,Urine Negative (Negative); Blood,Urine Negative (Negative); Color,Urine Yellow; Glucose,Urine (UA) Negative (Negative); Hyaline Casts,Urine 1 /lpf (0-2); Ketones,Urine 1+ (Negative); Leukocyte Esterase,Urine Negative (Negative); Mucus,Urine Occasional /hpf; Nitrite,Urine Negative (Negative); PH, Urine 7.5 (5.0-8.0); Protein,Urine Trace (Negative); RBC,Urine 2 /hpf (0-5); Specific Gravity,Urine 1.012 (1.001-1.035); Squamous Epithelial Cell,Urine 2 /hpf (0-4); Urobilinogen,Urine <2.0 mg/dL (<2.0); WBC,Urine 2 /hpf (0-5)
[2019-10-11] MEDS ORDERED: NALOXONE 0.4 MG/ML 1 ML VIAL IV PRN (01:14)
[2019-10-11] MEDS ORDERED: SODIUM CHLORIDE 0.9% 1,000 ML IV SCH (01:15)
[2019-10-11 01:39] LABS: C Reactive Protein 13.7 mg/L (<10.0)
[2019-10-11 01:41] LABS: D-Dimer 0.51 mg/L FEU (<0.60); INR 0.9 (<1.2); Partial Thromboplastin Time 24.6 sec (22.0-30.0); Prothrombin Time 9.5 sec (9.0-12.0)
--- NOTE | 2019-10-11 04:19 | P.HPIM ---
History of Present Illness H&P Date: 10/11/19 Chief Complaint: headache, coughing I was wearing full PPE during this encounter including N95 mask, face shield, double gloves, gown, and head cover. patient had a surgical mask on during my entire interview. i maintained 6 feet distance with the patient who verbalized understanding about these precautionary measures. except for during my physical exam where i had to be close to the patient. 69-year-old female with hypertension controlled with medications, and mild persistent asthma Patient comes in today with over 1 week history of productive cough and headache initially thought this could be secondary to sinusitis her PCP prescribed some antibiotics with no improvement she also reports loose bowel movements over the past couple days with upset stomach and in the ED she was found to have low- grade fever she denies any chest pain any troubles breathing denies any nausea or vomiting denies any changes to smell sensation, she reports some sore throat but reports loss of taste sensation, denies any body aches or myalgias. Reports recent traveling to [place] however they stayed at a friend's house that was end of August and they drove back here. She denies any known contact with COVID positive patient's EKG showed some ST changes in the inferior lateral leads but patient denies any chest pain troponins are negative Patient also reports worsening GERD symptoms with similar symptoms Patient uses inhaler twice a day, she has not been needing rescue inhaler normally but states she started using it over the past 2 days but denies any wheezing Patient was tested for covid and admitted for further care Review of Systems Pertinent positives as noted in HPI. All other systems were reviewed and are negative Past Medical History Past Medical History: Asthma, Hyperlipidemia, Hypertension Additional Past Medical History / Comment(s): h. pylori History of Any Multi-Drug Resistant Organisms: None Reported Past Surgical History: Joint Replacement, Tonsillectomy Additional Past Surgical History / Comment(s): knee hip replacement Past Anesthesia/Blood Transfusion Reactions: Motion Sickness, Postoperative Nausea & Vomiting (PONV) Past Psychological History: No Psychological Hx Reported, Anxiety Smoking Status: Former smoker Past Alcohol Use History: None Reported Past Drug Use History: None Reported - Past Family History Father Family Medical History: Cancer Additional Family Medical History / Comment(s): bladder cancer Mother Family Medical History: Cancer Additional Family Medical History / Comment(s): Stomach cancer Family Family Medical History: Cancer Additional Family Medical History / Comment(s): No history of premature CAD Medications and Allergies Home Medications Medication Instructions Recorded Confirmed Type Folic Acid 1 mg PO DAILY 04/12/17 11/30/18 History Omeprazole 40 mg PO DAILY PRN 04/12/17 11/30/18 History Simvastatin [Zocor] 20 mg PO HS 04/12/17 11/30/18 History buPROPion HCL [Wellbutrin SR] 150 mg PO BID 04/12/17 11/30/18 History Cholecalciferol [Vitamin D3 (25 1,000 unit PO DAILY 10/26/18 11/30/18 History Mcg = 1000 Iu)] Cyanocobalamin (Vitamin B-12) 1,000 mcg PO DAILY 10/26/18 11/30/18 History [Vitamin B-12] Vit C/E/Zn/Coppr/Lutein/Zeaxan 1 cap PO DAILY 10/26/18 11/30/18 History [Preservision Areds 2 Softgel] amLODIPine [Norvasc] 10 mg PO DAILY 11/30/18 11/30/18 History Allergies Allergy/AdvReac Type Severity Reaction Status Date / Time Penicillins Allergy Rash/Hives Verified 10/09/19 16:24 Physical Exam Vitals: Vital Signs Temp Pulse Resp BP Pulse Ox 10/11/19 00:16 18 10/10/19 22:30 98.5 F 102 H 20 144/85 97 Intake and Output 10/10/19 10/10/19 10/11/19 14:59 22:59 06:59 Other: Weight 63.503 kg Constitutional: No acute distress, conversant, pleasant, not on oxygen Eyes: Anicteric sclerae, moist conjunctiva, Pupils equal round reactive to light ENMT: NC/AT Oropharynx clear, no erythema, or exudates Neck: Supple, FROM, no masses, or JVD No carotid bruits No thyromegaly Lungs: Clear to auscultation Clear to percussion Normal respiratory effort, no accessory muscle use Cardiovascular: Heart regular in rate and rhythm, No murmurs, gallops, or rubs No peripheral edema Abdominal: Soft Nontender, no guarding, rebound or rigidity Abdomen moving with respiration Normoactive bowel sounds No hepatomegaly, No splenomegaly No palpable mass No abdominal wall hernia noted Skin: Normal temperature, tone, texture, turgor No induration No subcutaneous nodules No rash, lesions No ulcers Extremities: No digital cyanosis No clubbing Pedal pulses intact and symmetrical Radial pulses intact and symmetrical No calf tenderness Psychiatric: Alert and oriented to person, place and time Appropriate affect fair judgement Neuro Muscles Strength 5/5 in all 4 extremities Sensation to light touch grossly present throughout Cranial nerves II-XII grossly intact No focal sensory deficits Lymphatics: no palpable cervical or supraclavicular , or inguinal lymph nodes Results CBC & Chem 7: 10/11/19 00:08 10/11/19 00:08 Labs: Abnormal Lab Results - Last 24 Hours (Table) 10/11/19 10/11/19 Range/Units 00:08 00:48 Sodium 131 L (137-145) mmol/L Potassium 3.2 L (3.5-5.1) mmol/L Chloride 92 L (98-107) mmol/L Glucose 112 H (74-99) mg/dL AST 38 H (14-36) U/L ALT 35 H (4-34) U/L Urine Appearance Cloudy H (Clear) Urine Protein Trace H (Negative) Urine Ketones 1+ H (Negative) Urine Mucus Occasional H (None) /hpf Assessment and Plan Assessment: 69-year-old female with controlled hypertension on medications and mild persistent asthma comes in due to symptoms suggestive of COVID19. admitted for further care. anticipated length of stay >2 midnights patient labs and Xray were reviewed EKG showing inferolateral ST changes, asymptomatic, troponin negative consider cardio consult if patient symptomatic unknown baseline denies any exertional dyspnea in the past acute viral bronchitis Suspected COVID 19 very mild elevation of LFT mild loose bowel movement could be 2/2 Covid no lymphopenia LDH, CPK, D dimer wnl (for prognostic evalution of COVID) slightly elevated CRP await test results droplet and contact precautions no antibiotics not qualifies for plaquinel per antoine protocol symptomatic control of GI symptoms mild hyponatremia and hypokalemia paitent received some 1.5 L NS due to possible covid , cautious hydration advised discontinue IVF follow up electorlytes replace K astham , stable resume inhalers BID hypertension controlled verify home meds CODE STATUS:full code DVT prophylaxis: heparin sc Discussed with: Patient, ER, RN Anticipated length of stay > than [address]: home A total of 60 minutes was spent on the care of this complex patient more than 50% of the time was spent in counseling and care coordination.
[2019-10-11] MEDS: PANTOPRAZOLE 40 MG TABLET PO SCH ×3 (05:55→17:35)
[2019-10-11 06:50] LABS: ALT 38 U/L (4-34); AST 49 U/L (14-36); African American GFR (CKD) >90 (>60 ml/min/1.73 sqM); Albumin 3.7 g/dL (3.5-5.0); Alkaline Phosphatase 86 U/L (38-126); Anion Gap 8 mmol/L; Blood Urea Nitrogen 9 mg/dL (7-17); Calcium 8.5 mg/dL (8.4-10.2); Carbon Dioxide 27 mmol/L (22-30); Chloride 99 mmol/L (98-107); Glucose 97 mg/dL (74-99); Non-African American GFR(CKD) >90 (>60 ml/min/1.73 sqM); Potassium 3.8 mmol/L (3.5-5.1); Sodium 134 mmol/L (137-145); Total Bilirubin 0.4 mg/dL (0.2-1.3); Total Protein 6.2 g/dL (6.3-8.2)
[2019-10-11] MEDS: SYMBICORT 160-4.5 MCG INHALER INHALATION SCH ×2 (08:29→20:09)
[2019-10-11] MEDS: HEPARIN SODIUM,PORCINE 5,000 UNIT/ML 1 ML VIAL SQ SCH ×3 (08:29→22:46)
[2019-10-11] MEDS: LOSARTAN 25 MG TAB PO SCH (08:29)
[2019-10-11] MEDS: METOPROLOL TARTRATE 25 MG TAB PO SCH (08:29)
--- NOTE | 2019-10-11 08:43 | P.PN ---
Progress Note - Text Progress Note Date: 10/11/19 Patient states that she did not have a good night's sleep last night. She is still feeling fatigued, was having diarrhea at home, did not have any this morning. Plan Awaiting COVID 19 test results droplet and contact precautions no antibiotics IV fluids Monitor for symptoms of sob. D/W cardiology EKG changes are likely not indicative of ischemia
--- NOTE | 2019-10-11 09:31 | CONS ---
CONSULTATION This is a patient, apparently I see her in the office. She has history of hypertension and hyperlipidemia. She has had a normal EKG with nonspecific ST-T changes. She had a cardiac catheterization performed in November of 2018 which revealed no significant obstructive CAD. She returned from [place] probably about three weeks ago. She came in with complaints of having some shortness of breath and also complained of cough. She was not febrile. She complained of some midthoracic discomfort, very atypical. Upon my questioning, her shortness of breath and cough seems to have resolved. She has no chest pain, her troponins are normal. She is resting comfortably without symptoms. She had some issue with edema of the lower extremities when she took amlodipine. Her blood pressure control is fairly decent. She is asymptomatic at the time of my evaluation. An EKG revealed a sinus mechanism with inferolateral nonspecific ST-T changes which are nonspecific and not new. PAST MEDICAL HISTORY: Hypertension, hyperlipidemia, bronchial asthma, unremarkable cardiac catheterization, normal stress test 10 and 11 months ago. Status post knee arthroplasty. ALLERGIES: PENICILLIN. MEDICATIONS: Amlodipine 10 mg daily, vitamin supplements, simvastatin 20 mg daily, and folic acid and omeprazole 40 mg daily. PHYSICAL EXAMINATION: On examination, blood pressure is 140/70, pulse rate of 70 per minutes, regular. HEENT: Unremarkable. Fundus was not examined by me. NECK: Supple. No JVD. I do not hear any significant carotid bruit. HEART: Exam reveals S1, S2 heard normally. No significant murmurs. LUNGS: Clear. ABDOMEN: Soft, nontender. LOWER EXTREMITIES: Reveal normal pulses. No edema. CENTRAL NERVOUS SYSTEMS: Normal. EKG revealed a sinus mechanism, LVH borderline with nonspecific ST-T changes. LABORATORY DATA: Revealed that two troponins are unremarkable. IMPRESSION: 1. Atypical chest pain. 2. Hypertension. 3. Shortness of breath with history of bronchial asthma which seems to be unremarkable at this time. RECOMMENDATIONS: This patient does not have any CAD of significance by catheterization. Her symptoms do not represent angina. Her shortness of breath has resolved. Her labs are normal. I am switching her from amlodipine to losartan 50 mg daily and metoprolol tartrate 25 mg daily. Hopefully, this combination will address her blood pressure without issue and edema of the lower extremities which she has experienced with amlodipine will resolve. She can be discharged and I will see her in the office in 3-4 weeks. No further intervention is necessary. Thank you very much for the consult. MMODL / IJN: [id number] /
[2019-10-11] MEDS: ACETAMINOPHEN TAB 325 MG TAB PO PRN (21:24)
[2019-10-12 04:01] VITALS: PULSE 71; RESP 16
[2019-10-12] MEDS: PANTOPRAZOLE 40 MG TABLET PO SCH (06:30)
[2019-10-12] MEDS: ACETAMINOPHEN TAB 325 MG TAB PO PRN (07:12)
[2019-10-12] MEDS: MAG HYDROX/AL HYDROX/SIMETH 30 ML CUP PO PRN ×2 (07:12→11:46)
--- NOTE | 2019-10-12 08:04 | XR ---
EXAMINATION TYPE: XR chest 1V portable DATE OF EXAM: 10/12/2019 Comparison: 10/10/2019 Clinical History: 69-year-old female chest discomfort, covid contact Findings: The cardiomediastinal silhouette, aorta, and pulmonary vasculature are within normal limits. Lungs and pleural spaces are clear. Impression: No acute cardiopulmonary process.
[2019-10-12] MEDS: SYMBICORT 160-4.5 MCG INHALER INHALATION SCH (08:07)
[2019-10-12] MEDS: METOPROLOL TARTRATE 25 MG TAB PO SCH (08:35)
[2019-10-12] MEDS: HEPARIN SODIUM,PORCINE 5,000 UNIT/ML 1 ML VIAL SQ SCH (08:35)
[2019-10-12 09:49] VITALS: BP 146/81; TEMP 98.3
[2019-10-12] MEDS ORDERED: ALBUTEROL INHALER 60 PUFF/8 GM INHALER (BULK) INHALATION PRN (10:54)
[2019-10-12] MEDS: LOSARTAN 25 MG TAB PO SCH (11:46)
--- NOTE | 2019-10-12 11:56 | P.DS ---
Providers Date of admission: 10/11/19 01:35 Expected date of discharge: 10/12/19 Attending physician: Britt Garcia MD Consults: 10/11/19 01:14 Consult Physician Stat Consulting Provider: George Benton Consult Reason/Comments: acute ekg changes Do you want consulting provider notified?: Yes Primary care physician: Noris Stoddard Symmes Hospital Course: Discharge diagnoses Viral bronchitis Suspect Covid 19 Mild gastroenteritis Essential hypertension Asthma without acute exacerbation Hypokalemia Hyponatremia Hospital course The patient is a 69-year-old female with a history of hypertension and mild persistent asthma that was admitted after presenting with productive cough and headache, the patient had been initiated on outpatient antibiotics with doxycycline and been taking that for approximately a week. This included a chest x-ray that retained clear initially and on repeat, there is no lymphopenia, LDH CPK d-dimer were all within normal limits. She had a slightly elevated CRP, she was placed on droplet precautions However no antibiotics are initiated per [facility] protocol. She was noted to have hyponatremia and hypokalemia this was corrected with IV fluids and potassium replacement. The patient was noted to have mild acute gastroenteritis secondary to Covid -19. Her test had been sent to the [facility] but results are still pending on discharge. She was instructed to resume her home antibiotics to completion, and intact sent home on a albuterol inhaler and was started on metoprolol and losartan to control her blood pressure. No home O2 evaluation was performed prior to discharge and she maintained normal oxygen saturation post-exertion. She was subsequently discharged home in stable condition and instructed to follow-up with her PCP and cardiology and to self quarantine for the next 14 days. This discharge process took approximately 35 minutes Focused exam Respiratory: Clear also patient bilaterally diminished in the bases, unlabored on room air Patient Condition at Discharge: Good Plan - Discharge Summary New Discharge Prescriptions: New Losartan [Cozaar] 25 mg PO DAILY #30 tab Metoprolol Tartrate [Lopressor] 25 mg PO DAILY #30 tab Albuterol Inhaler [Ventolin Hfa Inhaler] 2 puff INHALATION RT-QID PRN #1 puff PRN Reason: Shortness Of Breath Or Wheezing Continue buPROPion HCL [Wellbutrin SR] 150 mg PO BID Folic Acid 1 mg PO DAILY Cholecalciferol [Vitamin D3 (25 Mcg = 1000 Iu)] 1,000 unit PO DAILY Vit C/E/Zn/Coppr/Lutein/Zeaxan [Preservision Areds 2 Softgel] 1 cap PO DAILY Cyanocobalamin (Vitamin B-12) [Vitamin B-12] 1,000 mcg PO DAILY Budesonide [Pulmicort Flexhaler] 2 puff INHALATION RT-BID Potassium Chloride [Klor-Con 20 Packets] 20 meq PO DAILY Doxycycline Hyclate 100 mg PO BID Discharge Medication List Folic Acid 1 mg PO DAILY 04/12/17 [History] buPROPion HCL [Wellbutrin SR] 150 mg PO BID 04/12/17 [History] Cholecalciferol [Vitamin D3 (25 Mcg = 1000 Iu)] 1,000 unit PO DAILY 10/26/18 [History] Cyanocobalamin (Vitamin B-12) [Vitamin B-12] 1,000 mcg PO DAILY 10/26/18 [History] Vit C/E/Zn/Coppr/Lutein/Zeaxan [Preservision Areds 2 Softgel] 1 cap PO DAILY 10/26/18 [History] Budesonide [Pulmicort Flexhaler] 2 puff INHALATION RT-BID 10/11/19 [History] Doxycycline Hyclate 100 mg PO BID 10/11/19 [History] Potassium Chloride [Klor-Con 20 Packets] 20 meq PO DAILY 10/11/19 [History] Albuterol Inhaler [Ventolin Hfa Inhaler] 2 puff INHALATION RT-QID PRN #1 puff 10/12/19 [Rx] Losartan [Cozaar] 25 mg PO DAILY #30 tab 10/12/19 [Rx] Metoprolol Tartrate [Lopressor] 25 mg PO DAILY #30 tab 10/12/19 [Rx] Follow up Appointment(s)/Referral(s): Jil Momin MD [STAFF PHYSICIAN] - 4 Weeks Noris Pink MD [Primary Care Provider] - 1-2 days Discharge Disposition: HOME SELF-CARE
--- NOTE | 2019-10-12 15:56 | P.PN ---
Subjective Progress Note Date: 10/12/19 This is a 69-year-old female who follows with Dr. Sancho Momin in the office. She has a history of hypertension and hyperlipidemia. She was seen in consultation yesterday by Dr. Momin, she complained of some atypical chest discomfort, her EKG was normal with nonspecific ST-T wave changes. Patient also went a cardiac catheterization in November 2018 which did not reveal any significantly obstructive coronary artery disease. Dr. Momin did discontinue her amlodipine yesterday and started her on losartan along with metoprolol. She did feel mildly woozy when she took both of these pills together, so we did split up for beta misti and arm. Overall the patient is doing well and from Dr. Momin's perspective she may be able to be discharged home today. Echocardiogram with Doppler study was performed which revealed a normal left ventricular systolic function. We will make her a follow-up appointment in the office with Dr. Sancho Momin in 4-5 weeks. Objective - Vital Signs Vital signs: Vital Signs Temp 98.3 F 10/12/19 08:40 Pulse 71 10/12/19 08:40 Resp 16 10/12/19 11:31 BP 146/81 10/12/19 08:40 Pulse Ox 100 10/12/19 11:31 Intake & Output 10/11/19 10/12/19 10/12/19 18:59 06:59 18:59 Intake Total 118 240 Balance 118 240 Weight 71 kg Intake: Oral 118 240 Other: # Voids 4 1 - Exam PHYSICAL EXAMINATION: GENERAL: 69-year-old female in no acute distress at the time of my examination HEENT: Head is atraumatic, normocephalic. Pupils equal, round. Sclera anicteric. Conjunctiva are clear. Mucous membranes of the mouth are moist. Neck is supple. There is no elevated jugular venous pressure. No carotid bruit is heard. HEART EXAMINATION: Heart S1, S2 normal. No murmur or gallop heard. CHEST EXAMINATION: Lungs are clear to auscultation and precussion. No chest wall tenderness is noted on palpation or with deep breathing. ABDOMEN: Soft, nontender. Bowel sounds are heard. No organomegaly noted. EXTREMITIES: 2+ peripheral pulses with no evidence of peripheral edema and no calf tenderness noted. NEUROLOGIC patient is awake, alert and oriented 3 . . - Labs CBC & Chem 7: 10/11/19 00:08 10/11/19 05:59 Labs: Microbiology - Last 24 Hours (Table) 10/11/19 00:08 Blood Culture - Preliminary Blood No Growth after 24 hours Assessment and Plan Plan: Assessment and plan #1 atypical chest pain #2 hypertension #3 shortness of breath with history of bronchial asthma #4 COVID 19 testing, pending Plan From cardiology's perspective, the patient may be discharged home today. We will make her a follow-up appointment in the office with Dr. Sancho Momin in 4-5 weeks. DNP note has been reviewed, I agree with a documented findings and plan of care. Patient was seen and examined.
== END 2019-10-12 13:22 | disposition home or self-care (01) ==
LOC: EC 22:27 → 3SCARD 10-11 01:35
PROVIDERS: ADMIT Internal Medicine; ATTEND Internal Medicine
DX: J20.8 Acute bronchitis due to other specified organisms (principal); K52.9 Noninfective gastroenteritis and colitis, unspecified; B97.29 Other coronavirus as the cause of diseases classified elsewhere; J45.30 Mild persistent asthma, uncomplicated; E87.6 Hypokalemia; R07.89 Other chest pain; R79.82 Elevated C-reactive protein (CRP); R51 Headache; M54.6 Pain in thoracic spine; R79.89 Other specified abnormal findings of blood chemistry; R60.1 Generalized edema; R94.31 Abnormal electrocardiogram [ECG] [EKG]; R74.0 Nonspecific elevation of levels of transaminase and lactic acid dehydrogenase [LDH]; E87.1 Hypo-osmolality and hyponatremia; I10 Essential (primary) hypertension; E78.5 Hyperlipidemia, unspecified; F41.9 Anxiety disorder, unspecified; Z88.0 Allergy status to penicillin; Z87.891 Personal history of nicotine dependence; Z79.899 Other long term (current) drug therapy; Z96.659 Presence of unspecified artificial knee joint; Z96.649 Presence of unspecified artificial hip joint; Z80.0 Family history of malignant neoplasm of digestive organs; Z80.52 Family history of malignant neoplasm of bladder
CPT/HCPCS: 96361 ×3; 96372 ×3; 96374; 99285; 36415; 94640 ×2; 93005; 85379; 83880; 80053; 82550; 83605; 83615; 83735; 84484; 85025; 85610; 85730; 86140; 81001; 87040; 87502; 84145; 71045 ×2; G0378 ×2; J2270; J1644 ×2

== ENCOUNTER → 2019-11-22 | Outpatient (CLI) | payer MEDICARE ==
[2019-11-22 15:58] LABS: African American GFR (CKD) 87.8 (60.0-200.0); Anion Gap 9.5 mmol/L (4.00-12.00); BUN/Creat Ratio 17.5 Ratio (12.00-20.00); Calcium 10.1 mg/dL (8.7-10.3); Carbon Dioxide 30.5 mmol/L (21.6-31.8); Magnesium 1.9 mg/dL (1.5-2.4); Non-African American GFR(CKD) 75.8 (60.0-200.0); Potassium 4.1 mmol/L (3.5-5.5)
== END | disposition home or self-care (01) ==
LOC: LABWHC1 09:56
PROVIDERS: ATTEND Internal Medicine
DX: I10 Essential (primary) hypertension (principal)
CPT/HCPCS: 36415; 80048; 83735

== ENCOUNTER → 2020-06-29 | Outpatient (CLI) | payer MEDICARE ==
[2020-07-04 16:37] LABS: Metanephrine, Free <25 pg/mL (< OR = 57); Normetanephrine, Free 150 pg/mL (< OR = 148); Total, Free (MN + NMN) 150 pg/mL (< OR = 205)
== END | disposition home or self-care (01) ==
LOC: LABWHC1 14:57
PROVIDERS: ATTEND Family Medicine
DX: I10 Essential (primary) hypertension (principal); R06.00 Dyspnea, unspecified; R51.9 Headache, unspecified
CPT/HCPCS: 36415; 83835

== ENCOUNTER → 2020-11-30 | Outpatient (CLI) | payer MEDICARE ==
--- NOTE | 2020-11-30 16:38 | US ---
EXAMINATION TYPE: US renal artery duplex complet DATE OF EXAM: 11/30/2020 COMPARISON: NONE CLINICAL HISTORY: I10 hypertension. HTN for 2 years MEASUREMENTS: RENAL SIZE: Rt Kidney: 9.0 x 5.0 x 4.3cm Lt Kidney: 9.8 x 4.9 x 4.1cm RESISTANCE INDEX Right: 0.66 Left: 0.64 RA/AO RATIO (< 3.5 ) Right: 2.2 Left: 1.7 RA VELOCITY ( < 180 cm/s) Right: 204.4cm/s Left: 127.8cm/s Mild atherosclerotic irregularity of the abdominal aorta. No evidence of abdominal aortic aneurysm. C ystic areas noted bilateral kidneys = 1.4 x 1.4 x 1.4cm on the right and 3.4 x 2.9 x 2.9cm on the lef t. limited evaluation of the left renal artery due to overlying bowel content. Slightly elevated velocities of the right renal artery. IMPRESSION: 1. No evidence of hydronephrosis or shadowing renal calculi. 2. Bilateral renal cysts. 3. There is elevated right renal artery velocity of 204.4 cm/s. This may represent an element of sten osis of the right renal artery. (Lower than 180 cm/s is within normal limits). The renal artery to ao rta ratio on the left is within normal limits. CT angiogram or MR angiogram may be helpful.
== END | disposition home or self-care (01) ==
LOC: RADUSWWP 08:19
PROVIDERS: ATTEND Family Medicine
DX: I10 Essential (primary) hypertension (principal); N28.1 Cyst of kidney, acquired
CPT/HCPCS: 93975

== ENCOUNTER 2020-12-05 08:33 | Day surgery (SDC) | payer MEDICARE ==
[2020-12-03 15:09] VITALS: BMI 28.3
[~2020-12-05 08:33] MED LIST: LACTATED RINGERS 1,000 ML IV SCH; LIDOCAINE 1% (10MG/ML) FOR IV START INTRADERMA PRN
[2020-12-05 09:21] VITALS: TEMP 97.8
[2020-12-05] MEDS ORDERED: PROPOFOL 10 MG/ML 20 ML VIAL IV ONE (09:44)
--- NOTE | 2020-12-05 10:03 | P.PCN ---
Date of Procedure: 12/05/20 Procedure(s) Performed: BRIEF HISTORY: Patient is a 70-year-old pleasant female scheduled for an elective colonoscopy as a part of screening for colorectal neoplasia. PROCEDURE PERFORMED: Colonoscopy with snare polypectomy. PREOPERATIVE DIAGNOSIS: Screening for colon cancer. IV sedation per Anesthesia. PROCEDURE: After informed consent was obtained, the patient, was brought into the endoscopy unit. IV sedation was administered by Anesthesia under continuous monitoring. Digital rectal examination was normal. Initially the Olympus CF-160 flexible video colonoscope was then inserted in the rectum, gradually advanced into the cecum without any difficulty. Careful examination was performed as the scope was gradually being withdrawn. Ileocecal valve and the appendiceal orifice were visualized and appeared normal. Prep was excellent. Mucosa of the cecum, ascending colon, transverse colon, descending colon, normal. In the distal sigmoid colon at 25 cm from the anal verge there was a 1 cm polyp that was removed by snare polypectomy. Scattered sigmoid diverticulosis seen. Rest of the sigmoid colon, and rectum appeared normal. Retroflexion was performed in the rectum and internal hemorrhoids were seen. The patient tolerated the procedure well. IMPRESSION: 1 cm; sigmoid polyp status post polypectomy Scattered sigmoid diverticulosis Small internal hemorrhoids RECOMMENDATIONS: Findings of this examination were discussed with the patient as well as her family. She was advised to follow with the biopsy results. If the biopsy shows an adenoma she can have a repeat colonoscopy in 3 years.
[2020-12-05 10:10] VITALS: RESP 18
[2020-12-05 10:38] VITALS: BP 150/84; PULSE 55
== END 2020-12-05 11:05 | disposition home or self-care (01) ==
LOC: ORWHC2ENDO 08:33
PROVIDERS: ATTEND Internal Medicine Gastroenterology
DX: Z12.11 Encounter for screening for malignant neoplasm of colon (principal); D12.5 Benign neoplasm of sigmoid colon; K57.30 Diverticulosis of large intestine without perforation or abscess without bleeding; K64.8 Other hemorrhoids; I10 Essential (primary) hypertension; J45.909 Unspecified asthma, uncomplicated; Z87.891 Personal history of nicotine dependence; F41.9 Anxiety disorder, unspecified; Z90.49 Acquired absence of other specified parts of digestive tract; Z98.890 Other specified postprocedural states; Z79.51 Long term (current) use of inhaled steroids; Z79.899 Other long term (current) drug therapy; Z88.0 Allergy status to penicillin
CPT/HCPCS: 88305; 45385; J2704

== ENCOUNTER → 2021-01-30 | Outpatient (CLI) | payer MEDICARE ==
[2021-02-01 01:18] LABS: Creatinine 24 Hour,Urine 0.87 g/24Hr (0.80-1.80)
[2021-02-01 12:28] LABS: Dopamine 24 Hr Urine 167 ug/day (65-400); Epinephrine 24 Hr Urine 6 ug/day (0-20); Metanephrines 24 Hour,Urine 93 ug/day (52-341); Norepinephrine 24 Hr Urine 74 ug/day (15-80); Normetanephrine 24 Hour,Urine 426 ug/day (88-444); Total Catecholamines Urine 80 ug/day (15-100); Total Metanephrines 24 Hour,Ur 519 ug/day (140-785)
== END | disposition home or self-care (01) ==
LOC: LABWHC1 09:44
PROVIDERS: ATTEND Internal Medicine
DX: N28.1 Cyst of kidney, acquired (principal); E26.9 Hyperaldosteronism, unspecified; I10 Essential (primary) hypertension
CPT/HCPCS: 36415; 81050; 82088; 82384; 82570; 83835; 84244

== ENCOUNTER → 2021-02-05 | Outpatient (CLI) | payer MEDICARE ==
[2021-02-05 13:32] LABS: African American GFR (CKD) >90 (>60 ml/min/1.73 sqM); Blood Urea Nitrogen 13 mg/dL (7-17); Non-African American GFR(CKD) >90 (>60 ml/min/1.73 sqM)
--- NOTE | 2021-02-05 18:14 | CT ---
EXAMINATION TYPE: CT abdomen wo/w con DATE OF EXAM: 02/05/2021 COMPARISON: 05/04/2017 CT abdomen pelvis, ultrasound renal arteries 11/30/2020 INDICATION: Hyperaldosteronism DLP: 1377 mGycm, Automated exposure control for dose reduction was used. CONTRAST: 100 mL of Isovue 300. Study performed with Oral Contrast TECHNIQUE: Axial images were obtained from above the diaphragm to the pubic rami in the axial plane a t 5 mm thick sections. Reconstructed images are reviewed on the computer in the coronal plane. FINDINGS: Limited CT sections are obtained the lung bases. There is a 0.8 cm nodule in the posterior lateral l eft lung base. This is a new finding. Short-term follow-up in 6 months is recommended. Mass is not ex cluded. Atelectasis could be considered.. Mild streak atelectasis at the right lung base. CT ABDOMEN: Liver: Normal Spleen: Normal Pancreas: Normal Adrenal glands: The adrenal glands are normal. Gallbladder: Normal Kidneys: No masses are evident. No hydronephrosis is present. No cysts are present. No renal stone s are identified. Below the left kidney is a concentric soft tissue density nearly isointense with the adjacent cortex. Series 3 image 41, series 4 image 36. This measures 1.1 x 2.8 x 1.9 centimeters. This may be a colla psed cyst present in 2017. Consider repeat ultrasound to reevaluate. Ultrasound for additional evalua tion. Aorta: Normal Inferior vena cava: Normal. Loops of bowel within the abdomen and pelvis are normal. There are loops of bowel which are incom pletely distended or lack oral contrast limiting their evaluation. IMPRESSIONS: 1. Soft tissue density below the left kidney may be related to a collapsed cyst. Evaluation with flori al ultrasound is recommended.
== END | disposition home or self-care (01) ==
LOC: RADCTMAIN 12:39
PROVIDERS: ATTEND Internal Medicine
DX: E26.9 Hyperaldosteronism, unspecified (principal)
CPT/HCPCS: 82565; 84520; 74170; 36415; Q9967

== ENCOUNTER → 2021-06-11 | Outpatient (CLI) | payer MEDICARE ==
--- NOTE | 2021-06-11 16:41 | US ---
EXAMINATION TYPE: US renal artery duplex complet DATE OF EXAM: 06/11/2021 COMPARISON: US, CT CLINICAL HISTORY: Q27.1 Renal artery stenosis. Patient stated has controlled HTN; followup was for le ft renal cyst as not seen on CT scan here. MEASUREMENTS: AORTA: size is wnl = 1.7 x 2.0cm; intimal wall thickening is noted at distal aorta and into Common Il iac Artery RENAL SIZE: Rt Kidney: 8.5 x 6.6 x 5.4cm Lt Kidney: 9.3 x 4.8 x 5.5cm RESISTANCE INDEX Right: 0.73 inferior Left: 0.67 mid and inferior RA/AO RATIO (< 3.5 ) Right: 2.2 Left: 1.5 RA VELOCITY ( < 180 cm/s) Right: 173.9 cm/s mid Left: 121.3 mid Renal Vein flow is documented bilaterally. Right renal US: inferior pole cortical cyst seen = 1.5 x 1.2 x 1.3cm; color flow is noted to renal pe riphery; mildly elevated PSV in mid right renal artery. Left renal US: inferior pole complex cyst is seen = 1.8 x 1.5 x 1.8cm; color flow is noted to renal periphery; left renal artery velocities are essentially wnl. IMPRESSION: 1. No suspicious renal artery stenosis.
== END | disposition home or self-care (01) ==
LOC: RADUSWWP 08:42
PROVIDERS: ATTEND Surgery
DX: N28.1 Cyst of kidney, acquired (principal); I10 Essential (primary) hypertension
CPT/HCPCS: 93975

== ENCOUNTER → 2021-07-04 | Outpatient (CLI) | payer MEDICARE ==
--- NOTE | 2021-07-04 15:50 | CT ---
EXAMINATION TYPE: CT abdomen wo/w con DATE OF EXAM: 07/04/2021 COMPARISON: CT 02/05/2021 HISTORY: epigastric to RUQ swelling/mass, abdominal mass CT DLP: 699.1 mGycm Automated exposure control for dose reduction was used. TECHNIQUE: Helical acquisition of images was performed from the lung bases through the top of iliac crest to include entire abdomen. CONTRAST: Performed with Oral Contrast and without and with IV Contrast, patient injected with 100 mL of Isovue 300. FINDINGS: LUNG BASES: Probable basilar atelectatic changes are present, there is no pleural or pericardial effu elisabeth evident LIVER/GB: Patient is post cholecystectomy, liver shows no mass. Some mild prominence of biliary duct likely due to postcholecystectomy change. PANCREAS: There is likely duodenal diverticulum at the level of the head of the pancreas, air densiti es present at this level SPLEEN: No significant abnormality is seen. ADRENALS: No significant abnormality is seen. KIDNEYS: Small cortical cysts are present bilaterally as seen on prior exam, lower pole the right kid patrick cyst measures approximately 15 mm. The area of cystic change inferior to the left kidney is noted and shows slightly elevated Hounsfield units, possible proteinaceous cyst measuring 2.3 cm BOWEL: No significant abnormality is seen. LYMPH NODES: No significant abnormality is appreciated. OSSEOUS STRUCTURES: No significant abnormality is seen. FREE AIR: No Free Air visible ASCITES: None visible. RETROPERITONEAL ADENOPATHY: No Retroperitoneal Adenopathy visible. OTHER: IMPRESSION: CYSTIC CHANGES ASSOCIATED WITH THE KIDNEYS DESCRIBED
== END | disposition home or self-care (01) ==
LOC: RADCTMAIN 12:49
PROVIDERS: ATTEND Family Medicine
DX: Z01.818 Encounter for other preprocedural examination (principal); N28.1 Cyst of kidney, acquired
CPT/HCPCS: 82565; 84520; 74170; 36415; Q9967